=== PATIENT | female | born 1960 | race Caucasian/White ===

== ENCOUNTER 2018-08-16 09:15 | Inpatient (IN) | payer BC, OTHER ==
[~2018-08-16 09:15] MED LIST: CLINDAMYCIN 900 MG in DEXTROSE 5% IN WATER 50 ML IVPB ONE; DEXAMETHASONE SOD PHOSPHATE 10 MG/ML 1 ML VIAL IV ONE; HEPARIN SODIUM,PORCINE 5,000 UNIT/ML 1 ML VIAL SQ ONE; LEVOFLOXACIN 500MG-D5W PMX 500 MG in DEXTROSE/WATER 1 100ML.BAG IVPB ONE; LIDOCAINE 1% 20 ML VIAL (10MG/ML) FOR IV START INTRADERMA PRN; MIDAZOLAM (PF) 2 MG/2 ML VIAL IV PRN; fentaNYL (PF) 50 MCG/ML 2 ML AMP IV PRN
[2018-08-16] MEDS ORDERED: SCOPOLAMINE 1.5MG/72HR PATCH TRANSDERM SCH (09:30)
--- NOTE | 2018-08-16 09:36 | P.GSHP ---
History of Present Illness H&P Date: 08/16/18 CHIEF COMPLAINT: Paraesophageal hiatal hernia with gastroesophageal reflux disease. HISTORY OF PRESENT ILLNESS: The patient is a 57-year-old female who presents with paraesophageal hiatal hernia. She has completed an esophageal manometry including upper endoscopy workup. Now she presents for surgical intervention. PAST MEDICAL HISTORY: Please see list. PAST SURGICAL HISTORY: Please see list. MEDICATIONS: Please see list. ALLERGIES: Please see list. SOCIAL HISTORY: No illicit drug use FAMILY HISTORY: No reports of Crohn disease or ulcerative colitis. REVIEW OF ORGAN SYSTEMS: CONSTITUTIONAL: No reports of fevers or chills. GI: Denies any blood in stools or constipation. PHYSICAL EXAM: VITAL SIGNS: Stable GENERAL: Well-developed pleasant and in no acute distress. HEENT: No scleral icterus. Extraocular movements grossly intact. Moist buccal mucosa. NECK: Supple without lymphadenopathy. CHEST: Unlabored respirations. Equal bilateral excursions. CARDIOVASCULAR: Regular rate and rhythm. Distal 2+ pulses. ABDOMEN: Soft, nondistended. No peritoneal signs. MUSCULOSKELETAL: No clubbing, cyanosis, or edema. SKIN: Well-perfused. Good skin turgor. MANOMETRY: Shows no evidence of achalasia or scleroderma. ASSESSMENT: 1. Diaphragmatic paraesophageal hiatal hernia with severe gastroesophageal reflux disease. PLAN: 1. Recommend proceeding with a robotic paraesophageal hiatal hernia with possible mesh. 2. Benefits and risks of surgical intervention was discussed including possibility of open technique. 3. Inpatient hospitalization recommended of 2 nights 4. DVT prophylaxis. 5. Antibiotic prophylaxis. 6. She has also completed a very low caloric high-protein diet to address underlying hepatomegaly. Past Medical History Past Medical History: Blood Disorder, Cancer, GERD/Reflux, Osteoarthritis (OA), Thyroid Disorder Additional Past Medical History / Comment(s): PERNICIOUS ANEMIA, UTERINE CA 2011, chronic constipation. Hx Bashir's with thyroid nodules and eventual total thyroidectomy. Borderline high cholestrol. History of Any Multi-Drug Resistant Organisms: None Reported Past Surgical History: Cholecystectomy, Hysterectomy, Tubal Ligation Additional Past Surgical History / Comment(s): BONE MARROW BX, thyroidectomy. Past Anesthesia/Blood Transfusion Reactions: Family History of Problems w/ Anesthesia, Motion Sickness, Postoperative Nausea & Vomiting (PONV) Additional Past Anesthesia/Blood Transfusion Reaction / Comment(s): STATES HAS "A LOT OF TROUBLE COMING OUT OF ANESTHESIA" POST OP HAD NURSE SIT NEXT TO HER FOR 5 HOURS, STATED WAS APNEIC. Sisters X2 and Mom had same problems. Past Psychological History: No Psychological Hx Reported Smoking Status: Former smoker Past Alcohol Use History: Rare Additional Past Alcohol Use History / Comment(s): Quit smoking 4 yrs ago, smoked 36 yrs, 1 PPD. Past Drug Use History: None Reported - Past Family History Mother Family Medical History: Cancer Father Family Medical History: Blood Disorder, Cancer Medications and Allergies Home Medications Medication Instructions Recorded Confirmed Type Multivitamins, Pediatric Chew 1 tab PO HS 07/16/14 08/08/18 History [Poly--Steffi Chew (formulary)] Cholecalciferol [Vitamin D3] 1,000 unit PO HS 02/24/15 08/08/18 History Levothyroxine Sodium [Tirosint] 150 mcg PO QAM 02/24/15 08/08/18 History Calcium Carbonate [Calcium] 600 mg PO HS 08/08/18 08/08/18 History Cetirizine HCl [Zyrtec] 10 mg PO DAILY 08/08/18 08/08/18 History Cyclobenzaprine [Flexeril] 5 mg PO TID PRN 08/08/18 08/08/18 History Levothyroxine Sodium [Tirosint] 50 mcg PO QAM 08/08/18 08/08/18 History Allergies Allergy/AdvReac Type Severity Reaction Status Date / Time Penicillins Allergy Anaphylaxis Verified 08/08/18 12:45
[2018-08-16] MEDS ORDERED: DEXAMETHASONE SOD PHOSPHATE 10 MG/ML 1 ML VIAL IV ONE (10:36)
[2018-08-16] MEDS ORDERED: ONDANSETRON 4 MG/2 ML VIAL IVP ONE (10:36)
[2018-08-16] MEDS: LACTATED RINGERS 1,000 ML IV SCH ×2 (10:36→16:14)
[2018-08-16] MEDS ORDERED: NEOSTIGMINE 1 MG/ML 10 ML VIAL ONE (12:14)
[2018-08-16] MEDS ORDERED: ROCURONIUM BROMIDE 10 MG/ML 10 ML VIAL IV ONE (12:14)
[2018-08-16] MEDS ORDERED: HYDROmorphone (PF) 1 MG/ML ONE (12:14)
[2018-08-16] MEDS ORDERED: SUCCINYLCHOLINE CHLORIDE 100 MG/5 ML SYR IV ONE (12:14)
[2018-08-16] MEDS ORDERED: MIDAZOLAM 2 MG/2 ML VIAL ONE (12:14)
[2018-08-16] MEDS ORDERED: PROPOFOL 10 MG/ML 20 ML VIAL IV ONE (12:14)
[2018-08-16] MEDS ORDERED: fentaNYL (PF) 50 MCG/ML 2 ML AMP ONE (12:14)
[2018-08-16] MEDS ORDERED: GLYCOPYRROLATE 0.2 MG/ML 2 ML VIAL ONE (12:14)
[2018-08-16] MEDS ORDERED: ESMOLOL 100 MG/10 ML VIAL ONE (12:14)
[2018-08-16] MEDS ORDERED: LIDOCAINE 1% INJ 10MG/ML (20 ML MDV) ONE (12:14)
[2018-08-16] MEDS ORDERED: BUPIVACAIN-EPI 0.5%-1:200,000 30 ML VIAL SQ ONE (12:41)
[2018-08-16] MEDS ORDERED: LACTATED RINGERS 1,000 ML IV ONE ×3 (12:55→14:56)
[2018-08-16 15:27] VITALS: RESP 16
[2018-08-16] MEDS ORDERED: HYDROcodone/APAP 15 ML SOLUTION PO PRN (15:31)
[2018-08-16] MEDS ORDERED: diphenhydrAMINE 50 MG/ML 1 ML VIAL IVP PRN (15:31)
[2018-08-16] MEDS ORDERED: HYDROmorphone 1 MG/ML 1 ML SYRINGE IVP PRN (15:31)
[2018-08-16] MEDS ORDERED: NALOXONE 0.4 MG/ML 1 ML VIAL IV PRN (15:31)
[2018-08-16] MEDS ORDERED: ACETAMINOPHEN IV (For NPO) 1,000 MG in EMPTY BAG 1 BAG IVPB ONE (15:31)
--- NOTE | 2018-08-16 15:57 | P.OP ---
Date of Procedure: 08/16/18 Description of Procedure: SURGEON: IESHA PEREIRA MD PREOPERATIVE DIAGNOSES: 1. Symptomatic paraesophageal diaphragmatic hiatal hernia. 2. Gastroesophageal reflux disease. 3. Fortune's esophagus 4. History of multinodular goiter 5. Obesity, BMI 33. 6. History of uterine cancer 7. History of parathyroid disorder 8. Family history of esophageal cancer. POSTOPERATIVE DIAGNOSES: 1. Paraesophageal midline diaphragmatic hernia, 6 cm, with incarceration. 2. Gastroesophageal reflux disease. 3. Fortune's esophagus 4. History of multinodular goiter 5. Obesity, BMI 33. 6. History of uterine cancer 7. History of parathyroid disorder 8. Family history of esophageal cancer. 9. Mediastinal tumor, benign, 5 cm 10. Distal esophageal extra mucosal lipoma, 2 cm OPERATION: 1. Robotic-assisted da Holden Xi laparoscopic repair of incarcerated paraesophageal hiatal hernia, 6 x 4 cm, with [place] Biopatch A 8 x 8 cm. 2. Robotic-assisted da Holden Xi laparoscopic resection of benign mediastinal tumor, 5 cm 3. Robotic-assisted da Holden Xi laparoscopic resection of benign esophageal tu mor, 2 cm 4. Intraoperative esophagogastroduodenoscopy ANESTHESIA: General with local anesthetic. ESTIMATED BLOOD LOSS: 10 mL SPECIMENS REMOVED: 1. Mediastinal and distal esophageal mass 5 cm COMPLICATIONS: None. Condition: stable Disposition: floor FINDINGS: 1. Midline incarcerated paraesophageal hiatal hernia 6 x 4 cm 2. Intraoperative upper endoscopy confirms complete closure of hiatal hernia from Hill grade 4 to Hill grade 1 3. Lower midline incisional hernia, 2 cm without incarceration INDICATIONS: The patient is a 57-year-old female who presents with regurgitation, gastroesophageal reflux disease poorly controlled despite medications, and a symptomatic diaphragmatic hiatal hernia with Fortune's esophagus. Preoperative workup including upper endoscopy demonstrated a Hill grade 4 lower esophageal valve. She completed an esophageal manometry. Given the severity of symptoms, she had elected for surgical intervention. Benefits and risks including bleeding, infection, recurrence, dysphagia, injury to the lung, need for further surgery was described at length. Informed consent was obtained. DESCRIPTION: The patient was brought into the operating room and placed in supine position. Preoperatively she had received heparin subcutaneously for DVT prophylaxis. After general induction, the abdomen was prepped and draped in standard sterile fashion. The patient had previously voided prior to coming to the operating room. [place] draping was placed along the abdomen. A timeout protocol was confirmed with the surgical team, for which the patient's name, procedure to be performed including DVT prophylaxis with bilateral SCDs, and preoperative antibiotics were also confirmed. A robotic da Holden Xi system was prepped and primed. At 12 cm from the xiphoid to just below the umbilicus, proposed port sites were marked with indelible marker along the left axillary line, left mid-clavicular line with each ports were marked 10 cm from each other. A 5 mm 0 degrees laparoscopic trocar entry was performed along the left upper quadrant. The abdomen was insufflated to 15 mmHg pressure was tolerated well. Diagnostic laparoscopy demonstrated no injury to bowel, viscera, or mesentery. No injury had occurred to the small bowel or viscera. Next, one 8 mm robotic port was placed along the right upper abdomen. An 8-mm port was were placed along the left lateral abdominal wall. The camera 8-mm port was maintained along the epigastrium via the hernia defect. Another 12 mm port was placed along the left upper abdominal wall after exchanging the 5 mm port. Please note that the ports were placed at least 20 cm away from the target anatomy. Care was taken to check that each robotic arm were safely away from collision with the bed or the patient. At the epigastrium, a medium sized Summer liver retractor was placed under direct visualization with the Iron Loader Unloader placed under the right shoulder of the patient. All robotic arms were used. The patient was repositioned in reverse Trendelenburg position at 16-degrees after lowering the bed. The robot was docked above the right side of the patient. Using a grasper for arm 3, a grasper for arm 1, including vessel sealer for arm 2, the robotic system was docked and primed as described. Instruments were interchanged by the assistant drafter. I had sat at the console. The gastrohepatic ligament was cleaved using a vessel sealer. Next, the phrenoesophageal ligament was mobilized and the distal esophagus was mobilized circumferentially. The left and right crura was identified. Circumferentially, the hernia sac was excised and brought into the peritoneal cavity. Moderate dissection into the mediastinum was performed to release the esophagus into the abdominal cavity. The paraesophageal hiatal hernia sac was also incised and divided from the esophagus. A distal esophageal extramucosal lipoma was also identified and resected 2 cm using a vessel sealer. Care was taken to avoid any gastrotomy. The measured defect was consistent with 6 cm axial length and 4 cm in width. After dissection, the distal esophagus of 3 cm was brought into the abdominal cavity. Once the hiatus and crura was dissected, 2-0 VLOC suture was placed to reapproximate the diaphragmatic hiatus posteriorly. To buttress the repair, a [place] Biopatch A was prepared along the back table and cut in half of a inman-hole fashion as to reinforce the repair as an underlay. The mesh was placed along the crural repair and tagged using horizontal mattress sutures using 2-0 VLOC. Attention was brought to preparation for a Charline fundoplasty as the patient had a weak lower esophageal sphincter on manometry. The proximal third of the stomach was mobilized along the short gastric arteries towards the angle of Hiss. Care was taken to avoid any injury to the spleen. Vessel sealer was used to control for hemostasis. Initial attempt to swing the proximal pole of the stomach posterior anteriorly was proposed however dense tissues were found and also debulked. Despite attempt of fundoplasty, high risk for potential iatrogenic esophageal obstruction was identified hence Charline fundoplasty was abandoned. I went to the head of the bed to perform intraoperative esophagogastroduodenoscopy and placement of a 56Fr bougie. The bougie did not pass easily into the posterior pharynx and also abandoned. An Olympus gastroscope was passed through posterior oropharynx. Retroflexion of the scope confirmed a Hill grade 1 lower esophageal valve. The stomach had been desufflated. No evidence of leaks were found of the esophagus or stomach. The squamocolumnar junction and hiatus was placed at 40 cm from the incisors. The GI tract with desufflated This concluded the endoscopic portion of the case. The robot was undocked from the patient. I re-scrubbed into the case. All instruments and pneumoperitoneum and specimens were evacuated from the abdominal cavity. Incisions were reapproximated using 4-0 Monocryl in an interrupted subcuticular fashion. Liquid glue was applied to the skin. Local anesthetic was infiltrated in all wounds for postop analgesia. Multiple intra-abdominal films were obtained. At the end of the procedure, needle, sponge, and instrument count was verified correct by the surgical elastic knitter. The patient had tolerated the procedure well and was taken to the postanesthesia unit in stable condition. Intraoperative films were reviewed with the patient's family who was pleased with the level of care. Console time 89 minutes.
[2018-08-16 17:06] VITALS: BMI 33.3
[2018-08-16] MEDS: ONDANSETRON 4 MG/2 ML VIAL IVP SCH (17:14)
[2018-08-16] MEDS: KETOROLAC 30 MG/ML 1 ML VIAL IVP SCH (17:15)
[2018-08-16] MEDS: METOCLOPRAMIDE 5 MG/ML 2 ML VIAL IVP SCH (17:15)
[2018-08-16] MEDS: HYOSCYAMINE ORAL DROPS 1.875 MG/15 ML BOTTLE PO SCH (17:18)
[2018-08-16] MEDS: SIMETHICONE 40 MG/0.6 ML DROPS 2,000 MG/30 ML BOTTLE PO SCH (17:20)
[2018-08-16] MEDS: CLINDAMYCIN 900 MG in DEXTROSE 5% IN WATER 50 ML IVPB SCH ×2 (22:03)
[2018-08-17] MEDS: SIMETHICONE 40 MG/0.6 ML DROPS 2,000 MG/30 ML BOTTLE PO SCH ×3 (00:15→11:09)
[2018-08-17] MEDS: ONDANSETRON 4 MG/2 ML VIAL IVP SCH ×3 (00:15→11:08)
[2018-08-17] MEDS: METOCLOPRAMIDE 5 MG/ML 2 ML VIAL IVP SCH ×3 (00:15→11:08)
[2018-08-17] MEDS: KETOROLAC 30 MG/ML 1 ML VIAL IVP SCH ×3 (00:15→11:09)
[2018-08-17] MEDS: HYOSCYAMINE ORAL DROPS 1.875 MG/15 ML BOTTLE PO SCH ×3 (00:15→11:09)
[2018-08-17] MEDS: 0.9% NACL WITH KCL 20 MEQ/L 1,000 ML IV SCH ×2 (00:16→02:16)
[2018-08-17 00:35] VITALS: PULSE 98
[2018-08-17] MEDS: CLINDAMYCIN 900 MG in DEXTROSE 5% IN WATER 50 ML IVPB SCH ×2 (05:33)
[2018-08-17 07:07] VITALS: BP 120/70; TEMP 97.8
[2018-08-17 07:26] LABS: Basophils % (A) 0 %; Eosinophils % (A) 0 %; HCT 40.6 % (34.0-46.0); HGB 12.8 gm/dL (11.4-16.0); Lymphocytes # (A) 1.9 k/uL (1.0-4.8); Lymphocytes % (A) 18 %; MCH 27.9 pg (25.0-35.0); MCHC 31.6 g/dL (31.0-37.0); MCV 88.5 fL (80.0-100.0); Mean Platelet Volume 7.4; Monocytes # (A) 0.6 k/uL (0-1.0); Monocytes % (A) 6 %; Neutrophils # (A) 7.9 k/uL (1.3-7.7); Neutrophils % (A) 75 %; Platelet Count 278 k/uL (150-450); RBC 4.59 m/uL (3.80-5.40); RDW 13.5 % (11.5-15.5); WBC 10.5 k/uL (3.8-10.6)
[2018-08-17 07:39] LABS: Anion Gap 8 mmol/L; Blood Urea Nitrogen 10 mg/dL (7-17); Carbon Dioxide 24 mmol/L (22-30); Chloride 107 mmol/L (98-107); Magnesium 1.7 mg/dL (1.6-2.3); Phosphorus 3.5 mg/dL (2.5-4.5); Potassium 4.5 mmol/L (3.5-5.1); Sodium 139 mmol/L (137-145)
[2018-08-17] MEDS ORDERED: 0.9% NACL WITH KCL 20 MEQ/L 1,000 ML IV SCH (08:00)
--- NOTE | 2018-08-17 08:28 | FL ---
EXAMINATION TYPE: FL esophagus cervic/pharynx DATE OF EXAM: 08/17/2018 HISTORY: post ronel fundoplasty, COMPARISON: NONE TECHNIQUE: A double contrast esophagram is performed utilizing air and barium. FINDINGS: The esophagus shows normal motility and emptying into the stomach. No evidence of obstruction noted. No significant subsegmental changes at the left lung base likely in the basis of postoperative atele ctasis. No extravasation. Fluoroscopy of 25 seconds and 4 images submitted. IMPRESSION: No obstruction or extravasation.
[2018-08-17] MEDS ORDERED: ENOXAPARIN 40 MG/0.4 ML SYRINGE SQ SCH (09:00)
[2018-08-17] MEDS ORDERED: PANTOPRAZOLE 40 MG/10 ML VIAL IV SCH (09:00)
[2018-08-17] MEDS: LACTATED RINGERS 1,000 ML IV SCH (10:50)
--- NOTE | 2018-08-17 12:09 | P.DS ---
Providers Date of admission: 08/16/18 09:56 Expected date of discharge: 08/17/18 Attending physician: Elzbieta Conte Primary care physician: Maria Camarena - Discharge Diagnosis(es) (1) GERD (gastroesophageal reflux disease) Current Visit: Yes Status: Acute (2) Barretts esophagus Current Visit: Yes Status: Acute (3) Benign tumor of mediastinum Current Visit: Yes Status: Acute (4) Lipoma Current Visit: Yes Status: Acute (5) Diaphragmatic hernia Current Visit: Yes Status: Acute (6) Hiatal hernia Current Visit: Yes Status: Acute Hospital Course: 57-year-old female who underwent robotic-assisted liver scheduled for repair of incarcerated paraesophageal hiatal hernia, resection of benign mediastinal tumor and benign esophageal tumor. She is doing well postoperatively without any immediate complications. Esophagram was completed which did not reveal evidence of obstruction or extravasation. Pain is controlled with oral medications. Denies nausea. Tolerating clear liquid diet. Vital signs are stable. She is stable for discharge home today. Please see EMR for further hospital course details. Discharge Diagnosis: 1. Paraesophageal midline diaphragmatic hernia, 6 cm, with incarceration. 2. Gastroesophageal reflux disease. 3. Fortune's esophagus 4. History of multinodular goiter 5. Obesity, BMI 33. 6. History of uterine cancer 7. History of parathyroid disorder 8. Family history of esophageal cancer. 9. Mediastinal tumor, benign, 5 cm 10. Distal esophageal extra mucosal lipoma, 2 cm Nurse practitioner note has been reviewed by physician. Signing provider agrees with the documented findings, assessment, and plan of care. Plan - Discharge Summary Discharge Rx Participant: No New Discharge Prescriptions: New Simethicone 40 mg/0.6 ml Drops [Mylicon Drops] 40 mg PO PCHS #30 ml Ondansetron Odt [Zofran Odt] 4 mg PO Q8HR PRN #9 tab PRN Reason: Nausea Bisacodyl [Dulcolax] 5 mg PO DAILY PRN #10 tablet.dr PRN Reason: Constipation HYDROcodone/APAP [[place] Elixir 7.5-325Mg/15Ml] 30 ml PO Q6HR PRN 3 Days #180 ml PRN Reason: Pain No Action Multivitamins, Pediatric Chew [Poly--Steffi Chew (formulary)] 1 tab PO HS Cholecalciferol [Vitamin D3] 1,000 unit PO HS Calcium Carbonate [Calcium] 600 mg PO HS Cyclobenzaprine [Flexeril] 5 mg PO TID PRN PRN Reason: Muscle Spasm Cetirizine HCl [Zyrtec] 10 mg PO DAILY Levothyroxine Sodium [Tirosint] 150 mcg PO DAILY Discharge Medication List Multivitamins, Pediatric Chew [Poly--Steffi Chew (formulary)] 1 tab PO HS 07/16/14 [History] Cholecalciferol [Vitamin D3] 1,000 unit PO HS 02/24/15 [History] Calcium Carbonate [Calcium] 600 mg PO HS 08/08/18 [History] Cetirizine HCl [Zyrtec] 10 mg PO DAILY 08/08/18 [History] Cyclobenzaprine [Flexeril] 5 mg PO TID PRN 08/08/18 [History] Levothyroxine Sodium [Tirosint] 150 mcg PO DAILY 08/16/18 [History] Bisacodyl [Dulcolax] 5 mg PO DAILY PRN #10 tablet. 08/17/18 [Rx] HYDROcodone/APAP [[place] Elixir 7.5-325Mg/15Ml] 30 ml PO Q6HR PRN 3 Days #180 ml 08/17/18 [Rx] Ondansetron Odt [Zofran Odt] 4 mg PO Q8HR PRN #9 tab 08/17/18 [Rx] Simethicone 40 mg/0.6 ml Drops [Mylicon Drops] 40 mg PO PCHS #30 ml 08/17/18 [Rx] Follow up Appointment(s)/Referral(s): Elzbieta Conte MD [STAFF PHYSICIAN] - 1 Week Activity/Diet/Wound Care/Special Instructions: No driving while taking [place] No lifting over 10 pounds You may shower. No soaking or tub baths Very light activity until you are reevaluated at your follow up appointment with your surgeon
[2018-08-18] MEDS ORDERED: BISACODYL 5 MG TABLET.DR PO PRN (08:00)
== END 2018-08-17 15:40 | disposition home or self-care (01) | DRG 328 ==
LOC: 2ORMAIN 09:56 → 4SSUR 15:42
PROVIDERS: ADMIT Surgery Plastic and Reconstructive Surgery; ATTEND Surgery Plastic and Reconstructive Surgery
PROC: 0DV44ZZ Restriction of Esophagogastric Junction, Percutaneous Endoscopic Approach (ICD-10-PCS; principal; 2018-08-16 11:15)
PROC: 0BUT4JZ Supplement Diaphragm with Synthetic Substitute, Percutaneous Endoscopic Approach (ICD-10-PCS; principal; 2018-08-16 11:15)
PROC: 8E0W4CZ Robotic Assisted Procedure of Trunk Region, Percutaneous Endoscopic Approach (ICD-10-PCS; principal; 2018-08-16 11:15)
PROC: 0DJ08ZZ Inspection of Upper Intestinal Tract, Via Natural or Artificial Opening Endoscopic (ICD-10-PCS; principal; 2018-08-16 11:15)
PROC: 07B74ZX Excision of Thorax Lymphatic, Percutaneous Endoscopic Approach, Diagnostic (ICD-10-PCS; principal; 2018-08-16 11:15)
DX: K44.0 Diaphragmatic hernia with obstruction, without gangrene (principal); R16.0 Hepatomegaly, not elsewhere classified; K21.9 Gastro-esophageal reflux disease without esophagitis; D17.4 Benign lipomatous neoplasm of intrathoracic organs; K43.2 Incisional hernia without obstruction or gangrene; K22.70 Barrett's esophagus without dysplasia; D51.0 Vitamin B12 deficiency anemia due to intrinsic factor deficiency; E89.0 Postprocedural hypothyroidism; K59.09 Other constipation; M19.90 Unspecified osteoarthritis, unspecified site; E66.9 Obesity, unspecified; Z68.33 Body mass index [BMI] 33.0-33.9, adult; Z79.890 Hormone replacement therapy; Z79.899 Other long term (current) drug therapy; Z85.42 Personal history of malignant neoplasm of other parts of uterus; Z87.891 Personal history of nicotine dependence; Z90.710 Acquired absence of both cervix and uterus; Z90.49 Acquired absence of other specified parts of digestive tract; Z98.51 Tubal ligation status; Z88.0 Allergy status to penicillin; Z80.0 Family history of malignant neoplasm of digestive organs
CPT/HCPCS: 74210; 80051; 82310; 82565; 83735; 84100; 84520; 85025; 88304

== ENCOUNTER → 2019-11-08 | Outpatient (CLI) | payer OTHER ==
--- NOTE | 2019-11-08 12:34 | FL ---
EXAMINATION: Cervical and Thoracic Esophagram DATE OF EXAM: 11/08/2019 CLINICAL INDICATION: 58-year-old female unspecified dysphagia, status post hiatal hernia surgery [place] h 2019 with irregular throat, coughing with eating, acid taste, history of Fortune's esophagus. COMPARISON: Total Fluoroscopy Time: 2.25 minutes. Total images: 46 FINDINGS: There are a couple episodes of silent deep penetration with coating of the vocal folds. Otherwise, th e swallowing mechanism is normal and hypopharyngeal anatomy is preserved. The cervical and thoracic portions have a normal course and caliber and normal motility. The mucosa i s normal and no persistent filling defect is encountered. There is a small hiatal hernia. Valsalva maneuver in the supine position results in backfilling of th e hernia and mild gastroesophageal reflux. IMPRESSION: 1. No fixed narrowing or suspicious filling defect. 2. A couple episodes of silent deep penetration with coating of the vocal folds. Recommend speech pat hology consultation for further evaluation. 3. Small hiatal hernia with mild gastroesophageal reflux demonstrated during the exam.
== END | disposition home or self-care (01) ==
LOC: RADUSWWP 10:41
PROVIDERS: ATTEND Surgery Plastic and Reconstructive Surgery
DX: K21.9 Gastro-esophageal reflux disease without esophagitis (principal); K44.9 Diaphragmatic hernia without obstruction or gangrene; Z88.0 Allergy status to penicillin
CPT/HCPCS: 74220

== ENCOUNTER → 2019-11-12 | Outpatient (CLI) | payer OTHER | END | disposition home or self-care (01) | LOC: LABWHC1 08:26 | PROVIDERS: ATTEND Surgery Plastic and Reconstructive Surgery | DX: Z11.59 Encounter for screening for other viral diseases (principal) ==

== ENCOUNTER 2019-11-14 09:33 | Day surgery (SDC) | payer OTHER ==
[2019-11-13 14:29] VITALS: BMI 37.5
--- NOTE | 2019-11-13 19:49 | P.GSHP ---
History of Present Illness H&P Date: 11/14/19 CHIEF COMPLAINT: GERD HISTORY OF PRESENT ILLNESS: The patient is a 58-year-old female who presents reports gastroesophageal reflux disease. Upper endoscopy was offered for further evaluation and management. PAST MEDICAL HISTORY: Please see list. PAST SURGICAL HISTORY: Please see list. MEDICATIONS: Please see list. ALLERGIES: Please see list. SOCIAL HISTORY: No illicit drug use FAMILY HISTORY: No reports of Crohn disease or ulcerative colitis. REVIEW OF ORGAN SYSTEMS: CONSTITUTIONAL: No reports of fevers or chills. GI: Denies any blood in stools or constipation. PHYSICAL EXAM: VITAL SIGNS: Stable GENERAL: Well-developed and pleasant in no acute distress. HEENT: No scleral icterus. Extraocular movements grossly intact. Moist buccal mucosa. NECK: Supple without lymphadenopathy. CHEST: Unlabored respirations. Equal bilateral excursions. CARDIOVASCULAR: Regular rate and rhythm. Distal 2+ pulses. ABDOMEN: Soft, nondistended. MUSCULOSKELETAL: No clubbing, cyanosis, or edema. ASSESSMENT: 1. Gastroesophageal reflux disease PLAN: 1. Recommend proceeding with an upper endoscopy Past Medical History Past Medical History: Blood Disorder, Cancer, GERD/Reflux, Osteoarthritis (OA), Thyroid Disorder Additional Past Medical History / Comment(s): PERNICIOUS ANEMIA, UTERINE CA 2011, chronic constipation. Hx Bashir's with thyroid nodules and eventual total thyroidectomy. Borderline high cholestrol. History of Any Multi-Drug Resistant Organisms: None Reported Past Surgical History: Cholecystectomy, Hysterectomy, Tubal Ligation Additional Past Surgical History / Comment(s): BONE MARROW BX, thyroidectomy. Hiatal hernia sx 08/2018 Past Anesthesia/Blood Transfusion Reactions: Family History of Problems w/ Anesthesia, Motion Sickness Additional Past Anesthesia/Blood Transfusion Reaction / Comment(s): STATES HAS "A LOT OF TROUBLE COMING OUT OF ANESTHESIA" POST OP HAD NURSE SIT NEXT TO HER FOR 5 HOURS, STATED WAS APNEIC. Sisters X2 and Mom had same problems. Smoking Status: Former smoker - Past Family History Mother Family Medical History: Cancer Father Family Medical History: Blood Disorder, Cancer Medications and Allergies Home Medications Medication Instructions Recorded Confirmed Type Multivitamins, Pediatric Chew 1 tab PO HS 07/16/14 11/13/19 History [Poly--Steffi Chew (formulary)] Cholecalciferol [Vitamin D3] 1,000 unit PO HS 02/24/15 11/13/19 History Calcium Carbonate [Calcium] 600 mg PO HS 08/08/18 11/13/19 History Cyclobenzaprine [Flexeril] 5 mg PO TID PRN 08/08/18 11/13/19 History Levothyroxine Sodium [Tirosint] 150 mcg PO DAILY 08/16/18 11/13/19 History Allergies Allergy/AdvReac Type Severity Reaction Status Date / Time cephalexin [From Keflex] Allergy Anaphylaxis Verified 11/13/19 14:32 Penicillins Allergy Anaphylaxis Verified 11/13/19 14:32
[~2019-11-14 09:33] MED LIST changes: -CLINDAMYCIN 900 MG in DEXTROSE 5% IN WATER 50 ML IVPB ONE; -DEXAMETHASONE SOD PHOSPHATE 10 MG/ML 1 ML VIAL IV ONE; -HEPARIN SODIUM,PORCINE 5,000 UNIT/ML 1 ML VIAL SQ ONE; +LACTATED RINGERS 1,000 ML IV SCH; -LEVOFLOXACIN 500MG-D5W PMX 500 MG in DEXTROSE/WATER 1 100ML.BAG IVPB ONE; -LIDOCAINE 1% 20 ML VIAL (10MG/ML) FOR IV START INTRADERMA PRN; -MIDAZOLAM (PF) 2 MG/2 ML VIAL IV PRN; -fentaNYL (PF) 50 MCG/ML 2 ML AMP IV PRN
[2019-11-14 10:37] VITALS: RESP 16; TEMP 97.7
[2019-11-14] MEDS ORDERED: LIDOCAINE 1% INJ 10MG/ML (20 ML MDV) ONE (11:01)
[2019-11-14] MEDS ORDERED: PROPOFOL 10 MG/ML 20 ML VIAL IV ONE (11:01)
--- NOTE | 2019-11-14 11:17 | P.HPADDEND ---
H&P Addendum H&P Addendum Date: 11/14/19 Patient presents with gastroesophageal reflux disease, recurrent. Also she has history of Fortune's. Will proceed with upper endoscopy with biopsies.
--- NOTE | 2019-11-14 11:20 | P.PCN ---
Date of Procedure: 11/14/19 Description of Procedure: PREOPERATIVE DIAGNOSIS: Gastroesophageal reflux disease. Morbid obesity. History of Fortune's esophagus POSTOPERATIVE DIAGNOSIS: Morbid obesity. Gastritis. Gastroesophageal reflux disease. Gastric polyp History of Fortune's esophagus OPERATION: Esophagogastroduodenoscopy with snare polypectomy for gastric polyp and GE junction polyp Esophagogastroduodenoscopy with biopsies along the distal esophagus SURGEON: Elzbieta Conte MD ANESTHESIA: MAC. INDICATIONS: The patient is a 58-year-old female who presents with a history of reflux disease and Fortune's esophagus. Benefits and risks of the procedure were described. Informed consent was obtained. DESCRIPTION: The patient was brought into the endoscopy suite and laid in the left lateral decubitus position. An Olympus gastroscope was passed along the posterior oropharynx down to the distal esophagus where the squamocolumnar junction was encountered at 40 cm from the incisors. The stomach was entered and no bile reflux was found. Additional findings are listed below. Biopsies with cold forceps were obtained of the antrum. Additionally, gastric polyp is in a following the antrum and GE junction. The first through third portion of the duodenum was examined and unremarkable. Retroflexion of the scope confirmed Hill grade 2 lower esophageal valve. The squamocolumnar junction demonstrated LA grade A erosive esophagitis. The stomach was desufflated. The patient tolerated the procedure well. FINDINGS: Squamocolumnar junction 37 cm from the incisors. Diaphragmatic hiatus at 37 cm. Hill grade 2 lower esophageal valve. LA grade A erosive esophagitis. No active duodenitis. Chronic gastritis 8 mm gastric polyp along antrum resected with snare polypectomy 4 mm gastric polyp along gastroesophageal junction resected with snare polypectomy The biopsy forceps of distal esophagus for Fortune's obtained RECOMMENDATIONS: Repeat upper endoscopy in one year. Plan - Discharge Summary New Discharge Prescriptions: New Omeprazole [PriLOSEC] 40 mg PO DAILY #90 cap Continue Multivitamins, Pediatric Chew [Poly--Steffi Chew (formulary)] 1 tab PO HS Cholecalciferol [Vitamin D3 (25 Mcg = 1000 Iu)] 1,000 unit PO HS Calcium Carbonate [Calcium] 600 mg PO HS Cyclobenzaprine [Flexeril] 5 mg PO TID PRN PRN Reason: Muscle Spasm Levothyroxine Sodium [Tirosint] 150 mcg PO DAILY Discharge Medication List Multivitamins, Pediatric Chew [Poly--Steffi Chew (formulary)] 1 tab PO HS 07/16/14 [History] Cholecalciferol [Vitamin D3 (25 Mcg = 1000 Iu)] 1,000 unit PO HS 02/24/15 [History] Calcium Carbonate [Calcium] 600 mg PO HS 08/08/18 [History] Cyclobenzaprine [Flexeril] 5 mg PO TID PRN 08/08/18 [History] Levothyroxine Sodium [Tirosint] 150 mcg PO DAILY 08/16/18 [History] Omeprazole [PriLOSEC] 40 mg PO DAILY #90 cap 11/14/19 [Rx] Follow up [facility]ment(s[facility]Ref[facility] [place] [place] [facility] - [place] Patient Instructions/Handouts: Gastric Polyps (DC) Activity/Diet/Wound Care/Special Instructions: Diet as tolerated. Avoid NSAIDs, ibuprofen, Motrin, Aleve for 3 days. Discharge Disposition: HOME SELF-CARE
[2019-11-14 11:41] VITALS: BP 139/77; PULSE 83
== END 2019-11-14 12:05 | disposition home or self-care (01) ==
LOC: ORWHC2ENDO 09:33
PROVIDERS: ATTEND Surgery Plastic and Reconstructive Surgery
DX: K21.0 Gastro-esophageal reflux disease with esophagitis (principal); K29.50 Unspecified chronic gastritis without bleeding; K31.7 Polyp of stomach and duodenum; K22.8 Other specified diseases of esophagus; K22.70 Barrett's esophagus without dysplasia; D51.0 Vitamin B12 deficiency anemia due to intrinsic factor deficiency; M19.90 Unspecified osteoarthritis, unspecified site; K59.09 Other constipation; E89.0 Postprocedural hypothyroidism; E78.00 Pure hypercholesterolemia, unspecified; E66.01 Morbid (severe) obesity due to excess calories; Z68.37 Body mass index [BMI] 37.0-37.9, adult; Z88.1 Allergy status to other antibiotic agents; Z88.0 Allergy status to penicillin; Z86.39 Personal history of other endocrine, nutritional and metabolic disease; Z90.49 Acquired absence of other specified parts of digestive tract; Z90.710 Acquired absence of both cervix and uterus; Z98.51 Tubal ligation status; Z98.890 Other specified postprocedural states; Z91.89 Other specified personal risk factors, not elsewhere classified; Z87.891 Personal history of nicotine dependence; Z79.899 Other long term (current) drug therapy; Z79.890 Hormone replacement therapy; Z97.2 Presence of dental prosthetic device (complete) (partial); Z87.898 Personal history of other specified conditions; Z80.49 Family history of malignant neoplasm of other genital organs; Z84.89 Family history of other specified conditions; Z80.9 Family history of malignant neoplasm, unspecified; Z83.2 Family history of diseases of the blood and blood-forming organs and certain disorders involving the immune mechanism
CPT/HCPCS: 88305; 88342; 43239; 43251; J2001; J2704

== ENCOUNTER → 2019-11-20 | Outpatient (CLI) | payer OTHER ==
[2019-11-20 16:05] VITALS: BP 140/93; PULSE 92; RESP 16; TEMP 98.1; BMI 37.3
--- NOTE | 2019-11-20 16:21 | P.PN ---
Subjective Progress Note Date: 11/20/19 Bariatric H&P - History & Physicial H&P Date: 11/20/19 History & Physicial: Visit/CC: Follow-up after hernia surgery Patient initial contact: Initial weight: 101.605 kg Initial weight in pounds: 224.00 Height: 5 ft 5 in Initial BMI: 37.3 Last weight: Current weight: 101.605 kg Current weight in pounds: 224.00 Current BMI: 37.3 [place] body weight (based on NIH guidelines): 56.699 kg Excess body weight loss: 0.0% The patient is a 59 year-old F who presents for Bariatric Assessment. DATE OF SERVICE: 11/20/2019 REASON FOR CONSULTATION: Initial bariatric evaluation HISTORY OF PRESENT ILLNESS: Tran Rivero is a 59-year-old female who comes with lifelong morbid obesity. She comes in with blood sugar glucose intolerance, hypertension, troubles with weight. She has intolerance to Omeprazole for her severe gastroesophageal reflux disease. She has osteoarthritis. 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 She comes in for the gastric bypass. She has tried weight loss with caloric restriction often with weight regain. At height of 5 feet 5 inches, her ideal body weight is 149 pounds. She comes in 224 pounds. Her body mass index is 37.3. She is 75 pounds overweight. PAST MEDICAL HISTORY: 1. Morbid obesity due to excess calories 2. Body mass index of 37.3, initial 3. Gastroesophageal reflux disease 4. Hypothyroidism 5. Pernicious anemia 6. History of uterine cancer 7. Bashir's thyroiditis 8. Hypercholesterolemia 9. Chronic constipation 10. Postoperative nausea vomiting 11. Hypertension PAST SURGICAL HISTORY: 1. Hysterectomy 2. Esophagogastroduodenoscopy 3. Cholecystectomy 4. Tubal ligation 5. Thyroidectomy HOME MEDICATIONS: Home Medications Medication Instructions Recorded Confirmed Multivitamins, Pediatric Chew 1 tab PO HS 07/16/14 11/14/19 [Poly--Steffi Chew (formulary)] Cholecalciferol [Vitamin D3 (25 1,000 unit PO HS 02/24/15 11/14/19 Mcg = 1000 Iu)] Calcium Carbonate [Calcium] 600 mg PO HS 08/08/18 11/14/19 Cyclobenzaprine [Flexeril] 5 mg PO TID PRN 08/08/18 11/14/19 Levothyroxine Sodium [Tirosint] 150 mcg PO DAILY 08/16/18 11/14/19 Previous Rx's Medication Instructions Recorded Omeprazole [PriLOSEC] 40 mg PO DAILY #90 cap 11/14/19 ALLERGIES: Allergies Allergy/AdvReac Type Severity Reaction Status Date / Time cephalexin [From Keflex] Allergy Anaphylaxis Verified 11/14/19 10:30 Penicillins Allergy Anaphylaxis Verified 11/14/19 10:30 SOCIAL HISTORY: Past tobacco use. FAMILY HISTORY: No family history of ulcerative colitis disease or Crohn's disease. Family history of morbid obesity. No lupus in the family. No reports of stomach or esophageal cancer. REVIEW OF ORGAN SYSTEMS: CONSTITUTIONAL: At height of 5 feet 5 inches, her ideal body weight is 149 pounds. She comes in 224 pounds. Her body mass index is 37.3. She is 75 pounds overweight. HEENT: Denies any active troubles with vision or hearing. ENDOCRINE: Past glucose intolerance. Has hypothyroidism. CARDIOVASCULAR: No past reports of palpitations or heart attacks or chest pain. RESPIRATORY: Has daytime somnolence. No asthma. GASTROINTESTINAL: Denies any bright red blood per rectum. No diarrhea. Has constipation. GENITOURINARY: No blood in urine. Has hysterectomy MUSCULOSKELETAL: Has lower back pain and joint pain. Has osteoarthritis of the knees and hips NEURO: No headaches. No seizure disorders. PSYCH: No depression. No suicidal ideation. RHEUMATOLOGIC: No lupus. No rheumatoid arthritis. HEMATOLOGIC: Denies any abnormal bleeding or bruising. No personal history of DVTs. SKIN: No rash. No skin cancer. PHYSICAL EXAM: VITAL SIGNS: Height 5 foot 5 inches, weight 224 pounds. BMI 37.3 Vital Signs Temp 98.1 F 11/20/19 16:00 Pulse 92 11/20/19 16:00 Resp 16 11/20/19 16:00 BP 140/93 11/20/19 16:00 Pulse Ox GENERAL: Well-developed in no acute distress. HEENT: No scleral icterus. Extraocular movements grossly intact. Hears conversational speech. No nasal drainage. NECK: Supple without lymphadenopathy. CHEST: Nonlabored respirations with equal bilateral excursions. CARDIOVASCULAR: Regular rate and regular rhythm. Distal 2+ pulses. ABDOMEN: Obese, soft, nontender, nondistended. MUSCULOSKELETAL: No clubbing, cyanosis. NEURO: No focal or lateralizing signs. Cranial nerves 2 through 12 grossly wi thin normal limits. PSYCH: Appropriate affect. Alert and oriented to person, place and time. SKIN: Good skin turgor. Well perfused. MEDICAL REPORT: EGD FINDINGS: Squamocolumnar junction 37 cm from the incisors. Diaphragmatic hiatus at 37 cm. Hill grade 2 lower esophageal valve. LA grade A erosive esophagitis. No active duodenitis. Chronic gastritis 8 mm gastric polyp along antrum resected with snare polypectomy 4 mm gastric polyp along gastroesophageal junction resected with snare polypectomy The biopsy forceps of distal esophagus for Fortune's obtained Final Pathologic Diagnosis A. STOMACH, BIOPSY: Hyperplastic polyp with background chronic active gastritis. Helicobacter pylori immunoperoxidase stain is negative for H. pylori organisms (controls appropriate). B. GASTROESOPHAGEAL JUNCTION, BIOPSY: Hyperplastic polyp with background chronic active inflammation. Negative for intestinal metaplasia. C. ESOPHAGUS, BIOPSY: Chronic esophagitis. Intramucosal eosinophils are not identified. ASSESSMENT: 1. Morbid obesity due to excess calories 2. Body mass index of 37.3, initial 3. Gastroesophageal reflux disease 4. Hypothyroidism 5. Pernicious anemia 6. History of uterine cancer 7. Bashir's thyroiditis 8. Hypercholesterolemia 9. Chronic constipation 10. Postoperative nausea vomiting 11. Hypertension PLAN: 1. Surgical options including a band, gastric bypass, sleeve gastrectomy were described in detail. Alternatives such as gastric balloon including duodenal switch were described. She is looking into the gastric bypass. 2. The [place] [facility] collaborative data and outcomes calculator were described with surgical options. 3. Recommend a bariatric metabolic panel to evaluate for micro- including macronutrient deficiencies. 4. For history of daytime somnolence, recommend evaluation and treatment for sleep apnea. 5. Dietary surveillance and counseling was reviewed. Increased protein intake over 65 grams daily advised. 6. Will need cardiac risk assessment. 7. Recommend medical risk assessment. 8. Psych assessment per insurance guidelines. 9. Recommend 12-lead EKG. 10. Recommend bariatric seminar. Thank you for this consultation. Past Medical History Past Medical History: Blood Disorder, Cancer, GERD/Reflux, Osteoarthritis (OA), Thyroid Disorder Additional Past Medical History / Comment(s): PERNICIOUS ANEMIA, UTERINE CA 2011, chronic constipation. Hx Bashir's with thyroid nodules and eventual total thyroidectomy. Borderline high cholestrol. History of Any Multi-Drug Resistant Organisms: None Reported Past Surgical History: Cholecystectomy, Hysterectomy, Tubal Ligation Additional Past Surgical History / Comment(s): BONE MARROW BX, thyroidectomy. Past Anesthesia/Blood Transfusion Reactions: Family History of Problems w/ Anesthesia, Motion Sickness, Postoperative Nausea & Vomiting (PONV) Additional Past Anesthesia/Blood Transfusion Reaction / Comm: STATES HAS "A LOT OF TROUBLE COMING OUT OF ANESTHESIA" POST OP HAD NURSE SIT NEXT TO HER FOR 5 HOURS, STATED WAS APNEIC. Sisters X2 and Mom had same problems. Past Psychological History: No Psychological Hx Reported Additional Psychological History / Comment(s): R/T ANESTHESIA Smoking Status: Former smoker Past Alcohol Use History: Rare Additional Past Alcohol Use History / Comment(s): Quit smoking 4 yrs ago, smoked 36 yrs, 1 PPD. Past Drug Use History: None Reported - Past Family History Mother Family Medical History: Cancer Father Family Medical History: Blood Disorder, Cancer Surgical - Exam Vital Signs Temp Pulse Resp BP 98.1 F 92 16 140/93 11/20/19 16:00 11/20/19 16:00 11/20/19 16:00 11/20/19 16:00 Bariatric Checklist Checklist: Plan: Checklist: EGD: 1. Hiatal hernia: 2. H. Pylori: HgbA1c: Vitamin D: Smoking: Former smoker Primary care physician referral: Psychiatry clearance: Cardiology clearance: Sleep study: Diet journal: VTE risk score: VTE risk level: Rehab needs at discharge: Objective - Vital Signs Vital signs: Vital Signs Temp 98.1 F 11/20/19 16:00 Pulse 92 11/20/19 16:00 Resp 16 11/20/19 16:00 BP 140/93 11/20/19 16:00 Pulse Ox Intake & Output 11/19/19 11/20/19 11/20/19 18:59 06:59 18:59 Weight 101.605 kg
== END | disposition home or self-care (01) ==
LOC: BARWHC3 15:41
PROVIDERS: ATTEND Surgery Plastic and Reconstructive Surgery
DX: E66.01 Morbid (severe) obesity due to excess calories (principal); K21.9 Gastro-esophageal reflux disease without esophagitis; E03.9 Hypothyroidism, unspecified; D51.0 Vitamin B12 deficiency anemia due to intrinsic factor deficiency; E06.3 Autoimmune thyroiditis; I10 Essential (primary) hypertension; K59.09 Other constipation; E78.00 Pure hypercholesterolemia, unspecified; Z68.37 Body mass index [BMI] 37.0-37.9, adult; Z85.42 Personal history of malignant neoplasm of other parts of uterus; Z90.49 Acquired absence of other specified parts of digestive tract; Z90.710 Acquired absence of both cervix and uterus; Z79.891 Long term (current) use of opiate analgesic; Z79.899 Other long term (current) drug therapy; Z88.0 Allergy status to penicillin; Z88.1 Allergy status to other antibiotic agents
CPT/HCPCS: 99211

== ENCOUNTER → 2019-12-10 | Outpatient (CLI) | payer OTHER ==
[2019-12-10 09:39] LABS: HCT 43.8 % (34.0-46.0); HGB 13.8 gm/dL (11.4-16.0); MCHC 31.5 g/dL (31.0-37.0); MCV 85.7 fL (80.0-100.0); Mean Platelet Volume 7.7; Platelet Count 279 k/uL (150-450); RBC 5.11 m/uL (3.80-5.40); RDW 13.3 % (11.5-15.5); WBC 6.6 k/uL (3.8-10.6)
[2019-12-10 16:49] LABS: % Iron Saturation 25.52 (12.00-45.00); African American GFR (CKD) 71.9 (60.0-200.0); Albumin/Globulin Ratio 1.54 (1.60-3.17); Anion Gap 5.4 mmol/L (4.00-12.00); Calcium 9.4 mg/dL (8.7-10.3); Carbon Dioxide 28.6 mmol/L (21.6-31.8); Chol/HDL Ratio 4.48; Globulin 2.6 g/dL (1.6-3.3); LDL Cholesterol,Calculated 112.8 mg/dL (0.0-131.0); Magnesium 1.8 mg/dL (1.5-2.4); Non-African American GFR(CKD) 62.1 (60.0-200.0); Phosphorus 3.6 mg/dL (2.4-5.1); Potassium 4.6 mmol/L (3.5-5.5); Total Bilirubin 0.3 mg/dL (0.3-1.2); Total Protein 6.6 g/dL (6.2-8.2); VLDL Calculation 33.2 mg/dL (5.00-40.00)
[2019-12-10 16:56] LABS: Ferritin 54.7 ng/mL (10.0-291.0)
[2019-12-10 17:01] LABS: Folate, Serum 8.2 ng/mL
[2019-12-10 17:27] LABS: INR 0.96 (0.90-1.11); Partial Thromboplastin Time 28.6 sec (24.7-29.9); Prothrombin Time 10.3 sec (9.9-11.9)
[2019-12-11 14:27] LABS: Zinc, Serum 64 ug/dL (60-130)
[2019-12-12 07:28] LABS: Vitamin A 51 ug/dL (38-106)
[2019-12-12 08:42] LABS: Vit B1(Thiamine) 62 ug/L (38-122)
== END | disposition home or self-care (01) ==
LOC: LABWHC1 08:15
PROVIDERS: ATTEND Surgery Plastic and Reconstructive Surgery
DX: E21.1 Secondary hyperparathyroidism, not elsewhere classified (principal); E89.1 Postprocedural hypoinsulinemia; D50.9 Iron deficiency anemia, unspecified; K90.9 Intestinal malabsorption, unspecified; E55.9 Vitamin D deficiency, unspecified; K74.1 Hepatic sclerosis; N19 Unspecified kidney failure; K50.90 Crohn's disease, unspecified, without complications
CPT/HCPCS: 36415; 80053; 80061; 82306; 82525; 82607; 82728; 82746; 83036; 83540; 83550; 83735; 83970; 84100; 84134; 84255; 84425; 84443; 84590; 84630; 85027; 85610; 85730; 93005

== ENCOUNTER → 2020-09-07 | Outpatient (CLI) | payer OTHER ==
[2020-09-07 12:12] VITALS: BMI 36.7
== END ==
LOC: BARWHC3 08:17
PROVIDERS: ATTEND Surgery Plastic and Reconstructive Surgery
DX: E66.01 Morbid (severe) obesity due to excess calories (principal); Z71.3 Dietary counseling and surveillance; Z68.36 Body mass index [BMI] 36.0-36.9, adult; Z87.891 Personal history of nicotine dependence
CPT/HCPCS: 97804

== ENCOUNTER → 2020-09-23 | Outpatient (CLI) | payer OTHER ==
[2020-09-23 16:55] VITALS: BP 139/84; PULSE 106; RESP 16; TEMP 97.7; BMI 37.0
--- NOTE | 2020-09-23 17:29 | P.PN ---
Subjective Progress Note Date: 09/23/20 DATE OF SERVICE: 09/23/2020 CHIEF COMPLAINT: Morbid obesity HISTORY OF PRESENT ILLNESS: Tran Rivero is a 59-year-old female who comes with lifelong morbid obesity. As a result of her morbid obesity, she has developed obstructive sleep apnea including hypertensive heart disease. She comes in with worsening gastroesophageal reflux disease. As a result of her comorbidities including uncontrolled gastroesophageal reflux disease, she is looking into the gastric bypass. She has completed her medical supervised weight loss. She has completed psychological risks assessment. She has completed medical and cardiac risks assessment. She has worsening symptoms in the past 9 months. She presents for surgical options. At height of 5 feet 5 inches, her ideal body weight is 149 pounds. Her highest weight is 226 pounds, BMI 37.7. She comes in 222 pounds from 226 pounds, 9 months ago. She has lost 3 pounds in 9 months. Her body mass index is 37.1. She is 74 pounds overweight. PAST MEDICAL HISTORY: 1. Morbid obesity due to excess calories 2. Body mass index of 37.7 3. Gastroesophageal reflux disease 4. Hypothyroidism 5. Pernicious anemia 6. History of uterine cancer 7. Bashir's thyroiditis 8. Hypercholesterolemia 9. Chronic constipation 10. Postoperative nausea vomiting 11. Hypertension PAST SURGICAL HISTORY: 1. Hysterectomy 2. Esophagogastroduodenoscopy 3. Cholecystectomy 4. Tubal ligation 5. Thyroidectomy HOME MEDICATIONS: Home Medications Medication Instructions Recorded Confirmed Multivitamins, Pediatric Chew 1 tab PO HS 07/16/14 09/07/20 [Poly--Steffi Chew (formulary)] Cholecalciferol [Vitamin D3 (25 8,000 unit PO HS 02/24/15 09/07/20 Mcg = 1000 Iu)] Calcium Carbonate [Calcium] 600 mg PO HS 08/08/18 09/07/20 Cyclobenzaprine [Flexeril] 10 mg PO TID PRN 08/08/18 09/07/20 Levothyroxine Sodium [Tirosint] 250 mcg PO DAILY 08/16/18 09/07/20 Previous Rx's Medication Instructions Recorded Famotidine [Pepcid] 20 mg PO BID #20 tablet 01/01/20 ALLERGIES: Allergies Allergy/AdvReac Type Severity Reaction Status Date / Time cephalexin [From Keflex] Allergy Anaphylaxis Verified 09/07/20 10:30 Penicillins Allergy Anaphylaxis Verified 09/07/20 10:30 omeprazole AdvReac Chest Pain Verified 09/07/20 10:30 SOCIAL HISTORY: Past tobacco use. FAMILY HISTORY: No family history of ulcerative colitis disease or Crohn's disease. Family history of morbid obesity. No lupus in the family. No reports of stomach or esophageal cancer. REVIEW OF ORGAN SYSTEMS: CONSTITUTIONAL: At height of 5 feet 5 inches, her ideal body weight is 149 pounds. Her highest weight is 226 pounds, BMI 37.7. She is 77 pounds overweight. HEENT: Denies any active troubles with vision or hearing. ENDOCRINE: Past glucose intolerance. Has hypothyroidism. CARDIOVASCULAR: No past reports of palpitations or heart attacks or chest pain. RESPIRATORY: Has daytime somnolence. No asthma. GASTROINTESTINAL: Denies any bright red blood per rectum. No diarrhea. Has constipation. GENITOURINARY: No blood in urine. Has hysterectomy MUSCULOSKELETAL: Has lower back pain and joint pain. Has osteoarthritis of the knees and hips NEURO: No headaches. No seizure disorders. PSYCH: No depression. No suicidal ideation. RHEUMATOLOGIC: No lupus. No rheumatoid arthritis. HEMATOLOGIC: Denies any abnormal bleeding or bruising. No personal history of DVTs. SKIN: No rash. No skin cancer. PHYSICAL EXAM: VITAL SIGNS: Height 5 foot 5 inches, weight 222 pounds. BMI 37.1 Vital Signs Temp 97.7 F 09/23/20 16:52 Pulse 106 H 09/23/20 16:52 Resp 16 09/23/20 16:52 BP 139/84 09/23/20 16:52 Pulse Ox GENERAL: Well-developed in no acute distress. HEENT: No scleral icterus. Extraocular movements grossly intact. Hears conversational speech. No nasal drainage. NECK: Supple without lymphadenopathy. CHEST: Nonlabored respirations with equal bilateral excursions. CARDIOVASCULAR: Tachycardic. Distal 2+ pulses. ABDOMEN: Obese, soft, nontender, nondistended. MUSCULOSKELETAL: No clubbing, cyanosis. NEURO: No focal or lateralizing signs. Cranial nerves 2 through 12 grossly within normal limits. PSYCH: Appropriate affect. Alert and oriented to person, place and time. SKIN: Good skin turgor. Well perfused. ASSESSMENT: 1. Morbid obesity due to excess calories 2. Body mass index of 37.7 to 37.1 3. Gastroesophageal reflux disease 4. Hypothyroidism 5. Pernicious anemia 6. History of uterine cancer 7. Bashir's thyroiditis 8. Hypercholesterolemia 9. Chronic constipation 10. Postoperative nausea vomiting 11. Hypertension 12. Vitamin D deficiency 13. Secondary hyperparathyroidism 14. COVID vaccinated PLAN: 1. Bariatric options between a sleeve, band and a Raciel-en-Y gastric bypass were reviewed in detail. The patient elected for a gastric bypass. Robotic assisted approach described. 2. The [place] [facility] Data was also reviewed with benefits and risks as described. 3. An 8 page second-generation bariatric consent form was reviewed in detail including potential of bleeding, infection, leaks, adequate weight loss, nutritional deficiencies which the patient demonstrated understanding of the risks. 4. A 2 week high-protein low caloric 800 kcal diet described to address hepatomegaly. 5. Preoperative labs including complete metabolic panel and CBC with type and screen recommended. 6. DVT prophylaxis per [place] [facility]. 7. Antibiotic prophylaxis. 8. Inpatient hospitalization anticipated for more than 2 nights. 9. All questions and concerns were addressed with the patient. 10. She is at elevated risk for perioperative complications from prior gastric surgery. 11. Overall, patient has expressed understanding of bariatric care including postoperative diet and commitment of lifestyle. Patient should benefit from surgical intervention for correction of her morbid obesity. 12. She has COVID vaccination done. 13. MBSAQIP reviewed with risks and benefits in detail including anticipated weight loss and handed to her. Objective - Vital Signs Vital signs: Vital Signs Temp 97.7 F 09/23/20 16:52 Pulse 106 H 09/23/20 16:52 Resp 16 09/23/20 16:52 BP 139/84 09/23/20 16:52 Pulse Ox Intake & Output 09/22/20 09/23/20 09/23/20 18:59 06:59 18:59 Weight 101.151 kg
== END | disposition home or self-care (01) ==
LOC: BARWHC3 16:16
PROVIDERS: ATTEND Surgery Plastic and Reconstructive Surgery
DX: E66.01 Morbid (severe) obesity due to excess calories (principal); K21.9 Gastro-esophageal reflux disease without esophagitis; E03.9 Hypothyroidism, unspecified; E78.00 Pure hypercholesterolemia, unspecified; D51.0 Vitamin B12 deficiency anemia due to intrinsic factor deficiency; E06.3 Autoimmune thyroiditis; K59.09 Other constipation; N25.81 Secondary hyperparathyroidism of renal origin; E55.9 Vitamin D deficiency, unspecified; I10 Essential (primary) hypertension; Z68.37 Body mass index [BMI] 37.0-37.9, adult; R11.2 Nausea with vomiting, unspecified; Z85.42 Personal history of malignant neoplasm of other parts of uterus; Z88.0 Allergy status to penicillin; Z88.1 Allergy status to other antibiotic agents; Z87.891 Personal history of nicotine dependence; Z79.899 Other long term (current) drug therapy
CPT/HCPCS: 99211

== ENCOUNTER → 2020-11-13 | Outpatient (CLI) | payer OTHER ==
[2020-11-13 10:15] LABS: Basophils % (A) 1 %; Eosinophils # (A) 0.1 k/uL (0-0.7); Eosinophils % (A) 2 %; HCT 43.2 % (34.0-46.0); Lymphocytes # (A) 1.8 k/uL (1.0-4.8); Lymphocytes % (A) 31 %; MCH 26.9 pg (25.0-35.0); MCHC 32.5 g/dL (31.0-37.0); MCV 82.7 fL (80.0-100.0); Mean Platelet Volume 7.4; Monocytes # (A) 0.4 k/uL (0-1.0); Monocytes % (A) 6 %; Neutrophils # (A) 3.4 k/uL (1.3-7.7); Neutrophils % (A) 59 %; Platelet Count 305 k/uL (150-450); RBC 5.22 m/uL (3.80-5.40); RDW 13.3 % (11.5-15.5); WBC 5.9 k/uL (3.8-10.6)
[2020-11-13 10:21] LABS: Albumin 4.3 g/dL (3.5-5.0); Calcium 9.8 mg/dL (8.4-10.2); Potassium 4.9 mmol/L (3.5-5.1); Total Bilirubin 0.4 mg/dL (0.2-1.3); Total Protein 7.2 g/dL (6.3-8.2)
== END | disposition home or self-care (01) ==
LOC: LABPAT 09:08
PROVIDERS: ATTEND Surgery Plastic and Reconstructive Surgery
DX: Z01.812 Encounter for preprocedural laboratory examination (principal)
CPT/HCPCS: 36415; 80053; 85025

== ENCOUNTER → 2020-11-18 | Outpatient (CLI) | payer OTHER ==
[2020-11-18 17:44] VITALS: BP 115/74; PULSE 98; RESP 18; TEMP 97.3; BMI 36.1
--- NOTE | 2020-11-18 18:19 | P.PN ---
Subjective Progress Note Date: 11/18/20 DATE OF SERVICE: 11/18/2020 CHIEF COMPLAINT: Morbid obesity HISTORY OF PRESENT ILLNESS: Tran Rivero is a 59-year-old female who comes in with complications from her morbid obesity including obstructive sleep apnea and hypertensive heart disease. She has severe gastroesophageal reflux disease unrelieved by medications and prior surgery. She is on Pepcid. She is now diabetic. She is looking into the gastric bypass to address her morbid obesity including severe gastroesophageal reflux disease. At height of 5 feet 5 inches, her ideal body weight is 149 pounds. Her highest weight is 226 pounds, BMI 37.7. She comes in 208 pound from 222 pounds, 2 months ago. She has lost 15 pounds in 2 months. Her body mass index is 36.1. She is 59 pounds overweight. PAST MEDICAL HISTORY: 1. Morbid obesity due to excess calories 2. Body mass index of 37.7 3. Gastroesophageal reflux disease 4. Hypothyroidism 5. Pernicious anemia 6. History of uterine cancer 7. Bashir's thyroiditis 8. Hypercholesterolemia 9. Chronic constipation 10. Postoperative nausea vomiting 11. Hypertension PAST SURGICAL HISTORY: 1. Hysterectomy 2. Esophagogastroduodenoscopy 3. Cholecystectomy 4. Tubal ligation 5. Thyroidectomy HOME MEDICATIONS: Home Medications Medication Instructions Recorded Confirmed Multivitamins, Pediatric Chew 1 tab PO HS 07/16/14 09/07/20 [Poly--Steffi Chew (formulary)] Cholecalciferol [Vitamin D3 (25 8,000 unit PO HS 02/24/15 09/07/20 Mcg = 1000 Iu)] Calcium Carbonate [Calcium] 600 mg PO HS 08/08/18 09/07/20 Cyclobenzaprine [Flexeril] 10 mg PO TID PRN 08/08/18 09/07/20 Levothyroxine Sodium [Tirosint] 250 mcg PO DAILY 08/16/18 09/07/20 Previous Rx's Medication Instructions Recorded Famotidine [Pepcid] 20 mg PO BID #20 tablet 01/01/20 ALLERGIES: Allergies Allergy/AdvReac Type Severity Reaction Status Date / Time cephalexin [From Keflex] Allergy Anaphylaxis Verified 09/07/20 10:30 Penicillins Allergy Anaphylaxis Verified 09/07/20 10:30 omeprazole AdvReac Chest Pain Verified 09/07/20 10:30 SOCIAL HISTORY: Past tobacco use. FAMILY HISTORY: No family history of ulcerative colitis disease or Crohn's disease. Family history of morbid obesity. No lupus in the family. No reports of stomach or esophageal cancer. REVIEW OF ORGAN SYSTEMS: CONSTITUTIONAL: At height of 5 feet 5 inches, her ideal body weight is 149 pounds. Her highest weight is 226 pounds, BMI 37.7. She is 77 pounds overweight. HEENT: Denies any active troubles with vision or hearing. ENDOCRINE: Past glucose intolerance. Has hypothyroidism. CARDIOVASCULAR: No past reports of palpitations or heart attacks or chest pain. RESPIRATORY: Has daytime somnolence. No asthma. GASTROINTESTINAL: Denies any bright red blood per rectum. No diarrhea. Has constipation. GENITOURINARY: No blood in urine. Has hysterectomy MUSCULOSKELETAL: Has lower back pain and joint pain. Has osteoarthritis of the knees and hips NEURO: No headaches. No seizure disorders. PSYCH: No depression. No suicidal ideation. RHEUMATOLOGIC: No lupus. No rheumatoid arthritis. HEMATOLOGIC: Denies any abnormal bleeding or bruising. No personal history of DVTs. SKIN: No rash. No skin cancer. PHYSICAL EXAM: VITAL SIGNS: Height 5 foot 5 inches, weight 209 pounds. BMI 36.1 Vital Signs Temp 97.3 F L 11/18/20 17:30 Pulse 98 11/18/20 17:30 Resp 18 11/18/20 17:30 BP 115/74 11/18/20 17:30 Pulse Ox GENERAL: Well-developed in no acute distress. HEENT: No scleral icterus. Extraocular movements grossly intact. Hears conversational speech. No nasal drainage. NECK: Supple without lymphadenopathy. CHEST: Nonlabored respirations with equal bilateral excursions. CARDIOVASCULAR: Regular rate and rhythm. Distal 2+ pulses. ABDOMEN: Obese, soft, nontender, nondistended. MUSCULOSKELETAL: No clubbing, cyanosis. NEURO: No focal or lateralizing signs. Cranial nerves 2 through 12 grossly within normal limits. PSYCH: Appropriate affect. Alert and oriented to person, place and time. SKIN: Good skin turgor. Well perfused. ASSESSMENT: 1. Morbid obesity due to excess calories 2. Body mass index of 37.7 to 36.1 3. Gastroesophageal reflux disease 4. Hypothyroidism 5. Pernicious anemia 6. History of uterine cancer 7. Bashir's thyroiditis 8. Hypercholesterolemia 9. Chronic constipation 10. Postoperative nausea vomiting 11. Hypertension 12. Vitamin D deficiency 13. Secondary hyperparathyroidism 14. COVID vaccinated PLAN: 1. She has elected for a gastric bypass. Robotic assisted approach described. 2. An 8 page second-generation bariatric consent form was reviewed in detail including potential of bleeding, infection, leaks, adequate weight loss, nutritional deficiencies which the patient demonstrated understanding of the risks. 3. Continues 2 week high-protein low caloric 800 kcal diet described to address hepatomegaly. 4. Preoperative labs including complete metabolic panel and CBC with type and screen recommended. 5. DVT prophylaxis per [place] [facility] collaborative. 6. Antibiotic prophylaxis. 7. Inpatient hospitalization anticipated for more than 2 nights. 8. All questions and concerns were addressed with the patient. 9. She is at elevated risk for perioperative complications from prior gastric surgery. 10. NSQIP reviewed for risks. Objective - Vital Signs Vital signs: Vital Signs Temp 97.3 F L 11/18/20 17:30 Pulse 98 11/18/20 17:30 Resp 18 11/18/20 17:30 BP 115/74 11/18/20 17:30 Pulse Ox Intake & Output 11/17/20 11/18/20 11/18/20 18:59 06:59 18:59 Weight 98.43 kg
== END ==
LOC: BARWHC3 16:38
PROVIDERS: ATTEND Surgery Plastic and Reconstructive Surgery
DX: E66.01 Morbid (severe) obesity due to excess calories (principal); D51.0 Vitamin B12 deficiency anemia due to intrinsic factor deficiency; E06.3 Autoimmune thyroiditis; E55.9 Vitamin D deficiency, unspecified; E78.00 Pure hypercholesterolemia, unspecified; G47.33 Obstructive sleep apnea (adult) (pediatric); I11.9 Hypertensive heart disease without heart failure; K21.9 Gastro-esophageal reflux disease without esophagitis; K59.09 Other constipation; N25.81 Secondary hyperparathyroidism of renal origin; Z85.42 Personal history of malignant neoplasm of other parts of uterus; Z87.891 Personal history of nicotine dependence; Z98.84 Bariatric surgery status; Z68.36 Body mass index [BMI] 36.0-36.9, adult; Z79.899 Other long term (current) drug therapy; Z88.0 Allergy status to penicillin; Z88.1 Allergy status to other antibiotic agents; Z88.8 Allergy status to other drugs, medicaments and biological substances
CPT/HCPCS: 99211

== ENCOUNTER 2020-11-23 06:47 | Inpatient (IN) | payer OTHER ==
[~2020-11-23 06:47] MED LIST changes: +ACETAMINOPHEN TAB 500 MG TAB PO PRN; +CLINDAMYCIN 900 MG in DEXTROSE 5% IN WATER 50 ML IVPB PRN; +DEXAMETHASONE SOD PHOSPHATE 4 MG/ML 1 ML VIAL IV ONE; +FAMOTIDINE 20 MG/2 ML VIAL IV PRN; +GABAPENTIN 300 MG CAP PO PRN; +GENTAMICIN 360 MG in SODIUM CHLORIDE 0.9% 100 ML IVPB PRN; +LACTATED RINGERS 1,000 ML IV ONE; -LACTATED RINGERS 1,000 ML IV SCH; +LIDOCAINE 1% (10MG/ML) FOR IV START INTRADERMA PRN; +MIDAZOLAM 2 MG/2 ML VIAL IV PRN; +ONDANSETRON 4 MG/2 ML VIAL IVP ONE
[2020-11-23] MEDS ORDERED: CHLORHEXIDINE GLUCONATE 15 ML CUP MUCOUS MEM PRN (07:00)
[2020-11-23] MEDS ORDERED: ENOXAPARIN 40 MG/0.4 ML SYRINGE SQ PRN (07:00)
--- NOTE | 2020-11-23 09:08 | P.GSHP ---
History of Present Illness H&P Date: 11/23/20 CHIEF COMPLAINT: Morbid obesity HISTORY OF PRESENT ILLNESS: Tran Rivero is a 59-year-old female who comes with lifelong morbid obesity. As a result of her morbid obesity, she has developed obstructive sleep apnea including hypertensive heart disease and diabetes. 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 At height of 5 feet 5 inches, her ideal body weight is 149 pounds. Her highest weight is 226 pounds, BMI 37.7. She comes in 215 from 222 pounds. PAST MEDICAL HISTORY: 1. Morbid obesity due to excess calories 2. Body mass index of 37.7 3. Gastroesophageal reflux disease 4. Hypothyroidism 5. Pernicious anemia 6. History of uterine cancer 7. Bashir's thyroiditis 8. Hypercholesterolemia 9. Chronic constipation 10. Postoperative nausea vomiting 11. Hypertension PAST SURGICAL HISTORY: 1. Hysterectomy 2. Esophagogastroduodenoscopy 3. Cholecystectomy 4. Tubal ligation 5. Thyroidectomy HOME MEDICATIONS: Home Medications Medication Instructions Recorded Confirmed Multivitamins, Pediatric Chew 1 tab PO HS 07/16/14 11/18/20 [Poly--Steffi Chew (formulary)] Cholecalciferol [Vitamin D3 (25 8,000 unit PO HS 02/24/15 11/18/20 Mcg = 1000 Iu)] Calcium Carbonate [Calcium] 600 mg PO HS 08/08/18 11/18/20 Levothyroxine Sodium [Tirosint-Steffi] 225 mcg PO QAM 11/18/20 11/18/20 Meloxicam 7.5 mg PO HS PRN 11/18/20 11/18/20 Vitamin B 12 Injections 1 applicate IJ DIRECTED 11/18/20 11/18/20 Zyrtec(Dose Unknown) 1 tab PO HS 11/18/20 11/18/20 ALLERGIES: Allergies Allergy/AdvReac Type Severity Reaction Status Date / Time cephalexin [From Keflex] Allergy Anaphylaxis Verified 11/18/20 17:40 Penicillins Allergy Anaphylaxis Verified 11/18/20 17:40 omeprazole AdvReac Chest Pain Verified 11/18/20 17:40 SOCIAL HISTORY: Past tobacco use. FAMILY HISTORY: No family history of ulcerative colitis disease or Crohn's disease. Family history of morbid obesity. No lupus in the family. No reports of stomach or esophageal cancer. REVIEW OF ORGAN SYSTEMS: CONSTITUTIONAL: At height of 5 feet 5 inches, her ideal body weight is 149 pounds. Her highest weight is 226 pounds, BMI 37.7. She is 77 pounds overweight. HEENT: Denies any active troubles with vision or hearing. ENDOCRINE: Past glucose intolerance. Has hypothyroidism. CARDIOVASCULAR: No past reports of palpitations or heart attacks or chest pain. RESPIRATORY: Has daytime somnolence. No asthma. GASTROINTESTINAL: Denies any bright red blood per rectum. No diarrhea. Has constipation. GENITOURINARY: No blood in urine. Has hysterectomy MUSCULOSKELETAL: Has lower back pain and joint pain. Has osteoarthritis of the knees and hips NEURO: No headaches. No seizure disorders. PSYCH: No depression. No suicidal ideation. RHEUMATOLOGIC: No lupus. No rheumatoid arthritis. HEMATOLOGIC: Denies any abnormal bleeding or bruising. No personal history of DVTs. SKIN: No rash. No skin cancer. PHYSICAL EXAM: VITAL SIGNS: Height 5 foot 5 inches, weight 215 pounds. BMI 35.9 GENERAL: Well-developed in no acute distress. HEENT: No scleral icterus. Extraocular movements grossly intact. Hears conversational speech. No nasal drainage. NECK: Supple without lymphadenopathy. CHEST: Nonlabored respirations with equal bilateral excursions. CARDIOVASCULAR:Distal 2+ pulses. ABDOMEN: Obese, soft, nontender, nondistended. MUSCULOSKELETAL: No clubbing, cyanosis. NEURO: No focal or lateralizing signs. Cranial nerves 2 through 12 grossly within normal limits. PSYCH: Appropriate affect. Alert and oriented to person, place and time. SKIN: Good skin turgor. Well perfused. ASSESSMENT: 1. Morbid obesity due to excess calories 2. Body mass index of 37.7 to 35.9 3. Gastroesophageal reflux disease 4. Hypothyroidism 5. Pernicious anemia 6. History of uterine cancer 7. Bashir's thyroiditis 8. Hypercholesterolemia 9. Chronic constipation 10. Postoperative nausea vomiting 11. Hypertension 12. Vitamin D deficiency 13. Secondary hyperparathyroidism 14. COVID vaccinated 15. 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 Bariatric options between a sleeve, band and a Raciel-en-Y gastric bypass were reviewed in detail. The patient elected for a gastric bypass. Robotic assisted approach described. 2. Antibiotic prophylaxis. 3. Inpatient hospitalization anticipated for more than 2 nights. Past Medical History Past Medical History: Blood Disorder, Cancer, GERD/Reflux, Osteoarthritis (OA), Skin Disorder, Thyroid Disorder Additional Past Medical History / Comment(s): PERNICIOUS ANEMIA, hx UTERINE CA, chronic constipation. Hx Bashir's with thyroid nodules. Borderline high cholestrol. hx hiatal hernia, psoriasis, "prediabetic"-diet controled, History of Any Multi-Drug Resistant Organisms: None Reported Past Surgical History: Cholecystectomy, Hysterectomy, Tubal Ligation Additional Past Surgical History / Comment(s): BONE MARROW BX, thyroidectomy. surgery to hiatal hernia, Past Anesthesia/Blood Transfusion Reactions: Family History of Problems w/ Anesthesia, Motion Sickness, Postoperative Nausea & Vomiting (PONV) Additional Past Anesthesia/Blood Transfusion Reaction / Comment(s): STATES HAS "A LOT OF TROUBLE COMING OUT OF ANESTHESIA" POST OP HAD NURSE SIT NEXT TO HER FO R 5 HOURS after hysterectomy, STATED WAS APNEIC.. no problems with last surgery at [facility] with general anesthesia per pt Smoking Status: Former smoker - Past Family History Mother Family Medical History: Cancer Additional Family Medical History / Comment(s): colon Father Family Medical History: Blood Disorder, Cancer Additional Family Medical History / Comment(s): hemophelia Medications and Allergies Home Medications Medication Instructions Recorded Confirmed Type Multivitamins, Pediatric Chew 1 tab PO HS 07/16/14 11/18/20 History [Poly--Steffi Chew (formulary)] Cholecalciferol [Vitamin D3 (25 8,000 unit PO HS 02/24/15 11/18/20 History Mcg = 1000 Iu)] Calcium Carbonate [Calcium] 600 mg PO HS 08/08/18 11/18/20 History Levothyroxine Sodium [Tirosint-Steffi] 225 mcg PO QAM 11/18/20 11/18/20 History Meloxicam 7.5 mg PO HS PRN 11/18/20 11/18/20 History Vitamin B 12 Injections 1 applicate IJ DIRECTED 11/18/20 11/18/20 History Zyrtec(Dose Unknown) 1 tab PO HS 11/18/20 11/18/20 History Allergies Allergy/AdvReac Type Severity Reaction Status Date / Time cephalexin [From Keflex] Allergy Anaphylaxis Verified 11/18/20 17:40 Penicillins Allergy Anaphylaxis Verified 11/18/20 17:40 omeprazole AdvReac Chest Pain Verified 11/18/20 17:40
[2020-11-23 10:11] LABS: Glucose,Whole Blood 84 mg/dL (75-99)
[2020-11-23] MEDS ORDERED: LACTATED RINGERS 1,000 ML IV ONE ×2 (10:12→13:50)
[2020-11-23] MEDS ORDERED: MIDAZOLAM 2 MG/2 ML VIAL IV ONE (10:44)
[2020-11-23] MEDS ORDERED: fentaNYL (PF) 50 MCG/ML 2 ML AMP IV ONE (11:00)
[2020-11-23] MEDS ORDERED: PROPOFOL 10 MG/ML 20 ML VIAL IV ONE (11:34)
[2020-11-23] MEDS ORDERED: HYDROmorphone (PF) 1 MG/ML ONE (11:34)
[2020-11-23] MEDS ORDERED: LIDOCAINE 1% INJ 10MG/ML (20 ML MDV) ONE (11:34)
[2020-11-23] MEDS ORDERED: SUCCINYLCHOLINE CHLORIDE 100 MG/5 ML SYR IV ONE (11:34)
[2020-11-23] MEDS ORDERED: ESMOLOL 100 MG/10 ML VIAL ONE (11:34)
[2020-11-23] MEDS ORDERED: fentaNYL (PF) 50 MCG/ML 2 ML AMP ONE (11:34)
[2020-11-23] MEDS ORDERED: ROCURONIUM 10 MG/ML (5 ML VIAL) IV ONE (11:34)
[2020-11-23] MEDS ORDERED: ROPIVACAINE 5 MG/ML 30 ML VIAL ONE (11:34)
[2020-11-23] MEDS ORDERED: NEOSTIGMINE 1 MG/ML 10 ML VIAL ONE (11:34)
[2020-11-23] MEDS ORDERED: GLYCOPYRROLATE 0.2 MG/ML 2 ML VIAL ONE (11:34)
[2020-11-23] MEDS ORDERED: KETAMINE 10 MG/ML 20 ML VIAL ONE (11:34)
[2020-11-23] MEDS ORDERED: MIDAZOLAM 2 MG/2 ML VIAL ONE (11:34)
--- NOTE | 2020-11-23 11:45 | P.ANPRN ---
Procedure Note - Anesthesia - Nerve Block Performed Bilateral Erector Spinae Time Out Performed: Yes (:43) Date of Procedure: 11/23/20 Procedure Start Time: : Procedure Stop Time: :58 Location of Patient: PreOp Indication: Acute Post-Operative Pain, Requested by Surgeon (Dr Conte) Sedation Type: Sedate with meaningful contact maintained Preparation: Sterile Prep Position: Prone Catheter: None Needle Types: Pajunk Needle Gauge: 21 Ultrasound used to visualize needle placement: Yes Ultrasound used to observe medication spread: Yes Injectate: 0.5% Ropivacaine (see comment for volume) (15cc + 10cc PF normal saline each side) Blood Aspirated: No Pain Paresthesia on Injection Noted: No Resistance on Injection: Normal Image Stored and Saved: Yes Events: Uneventful and Well Tolerated
[2020-11-23] MEDS ORDERED: LIDOCAINE 0.5%-EPI 1:200,000 50 ML VIAL SQ ONE (12:06)
[2020-11-23] MEDS ORDERED: diphenhydrAMINE 50 MG/ML 1 ML VIAL IVP PRN (15:23)
[2020-11-23] MEDS ORDERED: NALOXONE 0.4 MG/ML 1 ML VIAL IV PRN (15:23)
--- NOTE | 2020-11-23 15:29 | P.OP ---
Date of Procedure: 11/23/20 Description of Procedure: SURGEON: IESHA PEREIRA MD PREOPERATIVE DIAGNOSES: 1. Morbid obesity due to excess calories 2. Body mass index of 37.7 to 35.9 3. Gastroesophageal reflux disease 4. Hypothyroidism 5. Pernicious anemia 6. History of uterine cancer 7. Bashir's thyroiditis 8. Hypercholesterolemia 9. Chronic constipation 10. Postoperative nausea vomiting 11. Hypertension 12. Vitamin D deficiency 13. Secondary hyperparathyroidism 14. COVID vaccinated 15. Diabetes type 2 16. Fortune's esophagus POSTOPERATIVE DIAGNOSES: 1. Morbid obesity due to excess calories 2. Body mass index of 37.7 to 35.9 3. Gastroesophageal reflux disease 4. Hypothyroidism 5. Pernicious anemia 6. History of uterine cancer 7. Bashir's thyroiditis 8. Hypercholesterolemia 9. Chronic constipation 10. Postoperative nausea vomiting 11. Hypertension 12. Vitamin D deficiency 13. Secondary hyperparathyroidism 14. COVID vaccinated 15. Diabetes type 2 16. Fortune's esophagus 17. Pelvic adhesions 18. Recurrent hiatal hernia OPERATION: 1. Robotic assisted da Holden Xi laparoscopic Dede-en-Y gastric bypass, 75 cm antecolic antegastric Dede limb, with 25 mm EEA. 2. Robotic assisted da Holden Xi laparoscopic lysis of adhesions 3. Intraoperative esophagogastrojejunoscopy. ANESTHESIA: GETA and local ESTIMATED BLOOD LOSS: 10 mL SPECIMENS REMOVED: None. COMPLICATIONS: NONE. Operative Findings: 1. Biliopancreatic limb 60 cm 2. Bypass performed using 75 cm dede limb secondary to avoid increased tension at 150 cm. 3. Jejunojejunostomy defect obliterated by intra-abdominal fat 4. Leak test negative with gastrojejunal anastomosis patent and hemostatic. 5. Reinforcement sutures were placed along the gastrojejunal anastomosis at 12:00, 9:00 and 3:00 6. No fatty liver disease 7. Thoracic length 17 cm 8. Peritoneal adhesions omentum to pelvis as well as omentum to sigmoid colon lysed. 9. Short mesentery prohibiting bypass at 100 or 150 cm 10. Oozing at staple line of gastrojejunal anastomosis prohibiting additional anticoagulation INDICATIONS: Tran Rivero is a 59-year-old female who comes with lifelong morbid obesity. As a result of her morbid obesity, she has developed obstructive sleep apnea including hypertensive heart disease and diabetes. 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 At height of 5 feet 5 inches, her ideal body weight is 149 pounds. Her highest weight is 226 pounds, BMI 37.7. She comes in 215 from 222 pounds. A second-generation bariatric consent form was described in detail including the possibility of protein malnutrition, leaks, gastrojejunal stricture, venous thrombosis, need for further surgery for which she demonstrated understanding. Benefits and risks of the procedure were described at length. Informed consent was obtained. DESCRIPTION: The patient was brought into the operating room theater. She was placed supine. She had received Lovenox subcutaneously for DVT prophylaxis. Additionally she Peridex oral solution as an oral decontaminant was placed per anesthesia. After general induction, the abdomen was prepped and draped in standard sterile fashion. Ioban draping was placed along the abdomen. Sandoval catheter was placed A robotic da Holden Xi system was prepped and primed. Incisions were proposed at 15 cm from the xiphoid. Proposed port sites were marked with indelible marker along the anterior axillary line bilaterally, mid clavicular line bilaterally with each port marked 10 cm from each other. The robotic stapler port was marked for the right midclavicular line including along the left midclavicular line. A 5 mm 0 degrees laparoscopic trocar entry was performed along the left upper quadrant. The abdomen was insufflated to 15 mmHg pressure, which she tolerated well. Diagnostic laparoscopy demonstrated no injury to bowel, viscera, or mesentery. The liver was consistent with her 2-week protein diet. An 8 mm camera port was placed left lateral to the umbilicus at the epigastrium, 15 cm distal to the xiphoid. Next, 12-mm robot stapler port was placed along the right mid abdomen. An 12 mm port was exchanged along the left upper quadrant. An 8 mm port was placed on the left lateral abdominal wall under direct visualization Please note that the ports were placed 18 to 20 cm away from the target anatomy of the stomach. Care was taken to check that each robotic arm was safely away from collision with the bed or the patient. At the epigastrium, a medium sized Summer liver retractor was placed under direct visualization with the [place] Car Attendant placed under the right shoulder of the patient. The patient was repositioned in reverse Trendelenburg position at 21-degrees after lowering the bed. The robot was docked over the patient. Using grasper for arm 3, a grasper for arm 1, including vessel sealer for arm 4, the robotic system was docked and primed as described. Instruments were interchanged by the pier master assistant including endoscissors, the needle rail car driver, and stapler. I had sat at the console. Next, the transverse mesocolon was elevated with pelvic adhesion found at left lower quadrant, ometum to sigmoid colon. The transverse mesocolon was reflected into the upper abdomen. The ligament of Treitz was identified and measured 60 cm antegrade and marked using 3-0 Silk. The jejunum was divided at the 60 cm point using 60-mm white loads above the suture measurement. The biliopancreatic limb was held in place. The Dede limb was measured 75 cm in an antegrade fashion to avoid tension along the proposed gastrojejunal anastomosis from short mesentery. At 75 cm along the anti-mesenteric border of the Dede limb, a jejunojejunostomy was proposed whereby enterotomies were created along the biliopancreatic limb including the Dede limb using a Bovie cautery. A stay suture of 3-0 Slik was placed to align and create the anastomosis. The enterotomies along the anti- mesenteric borders were created followed by unidirectional fire from the patient's right side using 60 mm blue loads Smart technology robotic stapler. The jejunojejunostomy was found to be hemostatic. The enterotomy was closed after horizontal mattress stitch of 3-0 silk used to elevate the enterotomy followed by closure with the robotic stapler blue load. The jejunal limb was temporarily tacked along the left upper quadrant. Attention was now brought to the creation of the gastrojejunostomy. Along the lesser curvature of the stomach, dissection was made along the retrogastric space to allow first firing of the robotic staple. Green loads of 60 mm staplers were used to divide the stomach to create the gastric pouch. The patient was then prepared for placement of a Orvil. The patient was Mallampati 2. A 25-mm Orvil was selected for placement by the nurse senior sharepoint developer. The Orvil tubing was placed anterior to the staple line of the gastric pouch and brought out through the left inferior lateral port. I re-scrubbed into the case. The robotic arms were temporarily undocked. The Orvil was then carefully and successfully navigated with the help of the nurse senior sharepoint developer into the gastric pouch. The sutures were identified and divided. The tubing was from the 25 mm anvil. As the Orvil had been placed, the blind jejunal limb was brought proximally into the upper abdomen. No torsion was found upon the Dede limb. No tension was identified as the limb was brought along the upper abdomen. The blind jejunal limb was previously opened using endo-scissors with cautery. The 25-mm EEA stapler was brought through the left anterior lateral port site from the left side. The EEA stapler was brought through the open jejunal limb and its needle was deployed at the antimesenteric border where the anvil were mated for approximately 1 minute upon firing. The stapler was removed after irrigating the shaft of the instrument with warm normal saline. Donuts were found to be intact and on both sides. The [employer] Xi robot arms were then re-docked. I sat at the console. The open jejunal limb defect was closed using 60 mm blue loads after releasing any tension from the blind jejunal limb. Care was taken to avoid any long blind limb to avoid candycane syndrome. Reinforcement sutures were placed along the gastrojejunal anastomosis and placed along the 12:00, 9:00 and 3 o'clock position using 3-0 Vicryl. The jejunojejunostomy mesentery and Herrera's defect were obliterated by abdominal fat. I then went to the head of the bed to perform the esophagogastrojejunoscopy and a leak test. An Olympus gastroscope was passed alongthe posterior oropharynx which was unremarkable for any injury to the vocal cords. The scope was passed down to the proximal portion of the pouch, whereby mild oozing was encountered. Blood clots were suctioned. Excellent visualization of the gastrojejunostomy anastomosis, including the Dede limb was encountered with endoscopic image obtained. The anastomosis was found to be patent. The gastrointestinal tract was desufflated. No evidence of intraoperative leak was encountered as the gastric pouch and anastomosis were submerged under normal saline solution. The robot was then undocked. I then went back to the bedside of the patient, whereby with coordinated effort of the pier master assistant, irrigation was aspirated from the upper abdominal cavity. Tisseel was placed circumferentially over the anastomosis of the gastrojejunostomy. The fascial defect of the EEA stapler was closed using Dwight Hansen and 0 Vicryl. All instruments and pneumoperitoneum were evacuated from the abdominal cavity. The port correlating with the EEA stapler device was cleansed with normal saline solution and hydrogen peroxide. The rest of incisions were reapproximated using 4-0 Monocryl in an interrupted subcuticular fashion. Local anesthetic was infiltrated along the skin for postop analgesia. Liquid glue was applied to the skin. OptiFoam dressing was placed along the EEA stapler site. At the end of the procedure, needle, sponge and instrument count had been verified correct by the surgical garment fitter. The patient had tolerated the procedure well and was extubated and taken to the postanesthesia unit in stable condition. Intraoperative findings were described to the patient's family who were very pleased with the level of care.
[2020-11-23] MEDS: HYDROmorphone 0.5 MG/0.5 ML SYRINGE IVP PRN ×2 (15:36→15:54)
[2020-11-23] MEDS ORDERED: ONDANSETRON 4 MG/2 ML VIAL IVP ONE (15:54)
[2020-11-23] MEDS ORDERED: METOCLOPRAMIDE 5 MG/ML 2 ML VIAL IVP ONE (16:28)
[2020-11-23] MEDS: ACETAMINOPHEN IV (For NPO) 1,000 MG in EMPTY BAG 1 BAG IVPB SCH ×2 (16:54→23:57)
[2020-11-23] MEDS: metroNIDAZOLE-NS PMX 500 MG in SALINE 1 100ML.BAG IVPB SCH (16:54)
[2020-11-23] MEDS: SIMETHICONE 40 MG/0.6 ML DROPS 2,000 MG/30 ML BOTTLE PO SCH ×2 (16:55→23:57)
[2020-11-23] MEDS: 0.9% NACL WITH KCL 20 MEQ/L 1,000 ML IV SCH ×2 (17:10→23:55)
[2020-11-23] MEDS ORDERED: ONDANSETRON 4 MG/2 ML VIAL IVP SCH (18:00)
[2020-11-23] MEDS: ALBUTEROL NEBULIZED 2.5 MG/3 ML INHALATION SCH ×2 (18:22→20:52)
[2020-11-23] MEDS: PANTOPRAZOLE 40 MG/10 ML VIAL IV SCH (20:31)
[2020-11-23] MEDS: HYDROmorphone 1 MG/ML 1 ML SYRINGE IVP PRN (20:32)
[2020-11-23] MEDS: ONDANSETRON 4 MG/2 ML VIAL IVP PRN (20:53)
[2020-11-24] MEDS: metroNIDAZOLE-NS PMX 500 MG in SALINE 1 100ML.BAG IVPB SCH ×4 (00:37→23:54)
[2020-11-24] MEDS: ONDANSETRON 4 MG/2 ML VIAL IVP PRN ×4 (02:55→23:55)
[2020-11-24] MEDS: SIMETHICONE 40 MG/0.6 ML DROPS 2,000 MG/30 ML BOTTLE PO SCH ×4 (05:24→23:55)
[2020-11-24] MEDS: ACETAMINOPHEN IV (For NPO) 1,000 MG in EMPTY BAG 1 BAG IVPB SCH ×2 (05:24→12:00)
[2020-11-24] MEDS: PANTOPRAZOLE 40 MG/10 ML VIAL IV SCH ×2 (07:46→20:47)
[2020-11-24] MEDS: LEVOFLOXACIN 500MG-D5W PMX 500 MG in DEXTROSE/WATER 1 100ML.BAG IVPB SCH (07:47)
[2020-11-24] MEDS ORDERED: 0.9% NACL WITH KCL 20 MEQ/L 1,000 ML IV SCH (08:00)
[2020-11-24] MEDS: ALBUTEROL NEBULIZED 2.5 MG/3 ML INHALATION SCH ×4 (08:06→19:03)
[2020-11-24] MEDS ORDERED: SODIUM CHLORIDE 0.9% 1,000 ML IV ONE (09:04)
--- NOTE | 2020-11-24 09:04 | P.PN ---
Subjective Progress Note Date: 11/24/20 CHIEF COMPLAINT: Morbid obesity HISTORY OF PRESENT ILLNESS: Tran Rivero is a 59-year-old female status post gastric bypass 11/23/2020. Patient has been vomiting blood yesterday and early this morning as to be expected from oozing along staple line. She had also received Lovenox preoperatively. She is ambulating. Her oral intake is low due to nausea. Pain is controlled. REVIEW OF ORGAN SYSTEMS: No fevers or chills. Had nausea and emesis. No chest pain. No dyspnea on exertion PHYSICAL EXAM: VITAL SIGNS: Reviewed GENERAL: Well-developed in no acute distress. HEENT: No scleral icterus. Extraocular movements grossly intact. Hears conversational speech. No nasal drainage. NECK: Supple without lymphadenopathy. CHEST: Nonlabored respirations with equal bilateral excursions. CARDIOVASCULAR:Distal 2+ pulses. ABDOMEN: Incisions intact. No peritonitis. MUSCULOSKELETAL: No clubbing, cyanosis. NEURO: No focal or lateralizing signs. Cranial nerves 2 through 12 grossly within normal limits. PSYCH: Appropriate affect. Alert and oriented to person, place and time. SKIN: Good skin turgor. Well perfused. ASSESSMENT: 1. Morbid obesity due to excess calories 2. Body mass index of 37.7 to 35.9 3. Gastroesophageal reflux disease 4. Hypothyroidism 5. Pernicious anemia 6. History of uterine cancer 7. Bashir's thyroiditis 8. Hypercholesterolemia 9. Chronic constipation 10. Postoperative nausea vomiting 11. Hypertension 12. Vitamin D deficiency 13. Secondary hyperparathyroidism 14. COVID vaccinated 15. 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 Status post gastric bypass PLAN: 1. Recommend IV fluid hydration. 2. Scopolamine patch for nausea. 3. No further anticoagulation. Objective - Vital Signs Vital signs: Vital Signs Temp 98.1 F 11/24/20 08:00 Pulse 101 H 11/24/20 08:52 Resp 16 11/24/20 08:52 BP 131/71 11/24/20 08:52 Pulse Ox 92 L 11/24/20 08:52 Intake & Output 11/23/20 11/24/20 11/24/20 18:59 06:59 18:59 Intake Total 1765 Output Total 10 Balance 1755 Weight 96.7 kg Intake: IV 1765 Output: Estimated Blood Loss 10 Other: Voiding Method Toilet # Voids 1 - Labs CBC & Chem 7: 11/25/20 06:28 11/25/20 06:28 Assessment and Plan (1) Morbid obesity due to excess calories Current Visit: Yes Status: Acute Code(s): E66.01 - MORBID (SEVERE) OBESITY DUE TO EXCESS CALORIES SNOMED Code(s): 518510224 (2) BMI 35.0-35.9,adult Current Visit: Yes Status: Acute Code(s): Z68.35 - BODY MASS INDEX [BMI] 35.0-35.9, ADULT SNOMED Code(s): 819122172 (3) Sleep apnea Current Visit: Yes Status: Acute Code(s): G47.30 - SLEEP APNEA, UNSPECIFIED SNOMED Code(s): 01899417 (4) Hypertensive heart disease Current Visit: Yes Status: Acute Code(s): I11.9 - HYPERTENSIVE HEART DISEASE WITHOUT HEART FAILURE SNOMED Code(s): 57373845 (5) Diabetes type 2, controlled Current Visit: Yes Status: Acute Code(s): E11.9 - TYPE 2 DIABETES MELLITUS WITHOUT COMPLICATIONS SNOMED Code(s): 15649407 (6) Barretts esophagus Current Visit: No Status: Acute Code(s): K22.70 - ALONSO'S ESOPHAGUS WITHOUT DYSPLASIA SNOMED Code(s): 170081064
[2020-11-24] MEDS: SCOPOLAMINE 1.5MG/72HR PATCH TRANSDERM SCH (09:45)
[2020-11-24 10:08] VITALS: BMI 35.4
[2020-11-24 10:19] LABS: Basophils # (A) 0.03 X 10*3/uL (0.00-0.10); Basophils % (A) 0.2 %; Eosinophils # (A) 0 X 10*3/uL (0.04-0.35); Eosinophils % (A) 0 %; HCT 34.9 % (37.2-46.3); Lymphocytes # (A) 1.25 X 10*3/uL (0.90-5.00); Lymphocytes % (A) 6.6 %; MCH 27.2 pg (27.0-32.0); MCHC 31.5 g/dL (32.0-37.0); MCV 86.4 fL (80.0-97.0); Mean Platelet Volume 11.5 fL (9.5-12.2); Monocytes # (A) 1.23 X 10*3/uL (0.20-1.00); Monocytes % (A) 6.4 %; Neutrophils # (A) 16.48 X 10*3/uL (1.80-7.70); Neutrophils % (A) 86.3 %; Platelet Count 364 X 10*3/uL (140-440); RBC 4.04 X 10*6/uL (4.10-5.20); RDW 13.8 % (11.5-14.5); WBC 19.08 X 10*3/uL (4.50-10.00)
[2020-11-24 11:25] LABS: African American GFR (CKD) 94.2 (60.0-200.0); Anion Gap 6.1 mmol/L (4.00-12.00); Calcium 8.4 mg/dL (8.7-10.3); Carbon Dioxide 25.9 mmol/L (21.6-31.8); Magnesium 1.7 mg/dL (1.5-2.4); Non-African American GFR(CKD) 81.3 (60.0-200.0); Phosphorus 1.9 mg/dL (2.4-5.1); Potassium 4.8 mmol/L (3.5-5.5)
[2020-11-24] MEDS: SODIUM CHLORIDE 0.9% 1,000 ML IV SCH (13:33)
[2020-11-24] MEDS: MAGNESIUM SULFATE-D5W PMX 1 GM in DEXTROSE/WATER 1 100ML.BAG IVPB SCH ×2 (13:33→14:45)
[2020-11-24] MEDS: SODIUM PHOSPHATE 10 MMOL in SODIUM CHLORIDE 0.9% 250 ML IVPB SCH ×2 (16:46→19:34)
[2020-11-24] MEDS: 0.9% NACL WITH KCL 20 MEQ/L 1,000 ML IV SCH (20:43)
[2020-11-25] MEDS: SODIUM CHLORIDE 0.9% 1,000 ML IV SCH ×4 (01:08→21:05)
[2020-11-25] MEDS ORDERED: metroNIDAZOLE-NS PMX 500 MG in SALINE 1 100ML.BAG IVPB SCH (03:00)
[2020-11-25] MEDS: ONDANSETRON 4 MG/2 ML VIAL IVP PRN ×3 (05:14→19:25)
[2020-11-25] MEDS: SIMETHICONE 40 MG/0.6 ML DROPS 2,000 MG/30 ML BOTTLE PO SCH ×4 (05:14→17:39)
[2020-11-25] MEDS: ALBUTEROL NEBULIZED 2.5 MG/3 ML INHALATION SCH ×4 (08:28→19:41)
[2020-11-25] MEDS ORDERED: SODIUM CHLORIDE 0.9% 2,000 ML IV ONE (08:42)
[2020-11-25] MEDS: metroNIDAZOLE-NS PMX 500 MG in SALINE 1 100ML.BAG IVPB SCH ×2 (09:30→19:25)
[2020-11-25 10:25] LABS: Basophils # (A) 0.04 X 10*3/uL (0.00-0.10); Basophils % (A) 0.2 %; Eosinophils # (A) 0.04 X 10*3/uL (0.04-0.35); Eosinophils % (A) 0.2 %; HCT 37.3 % (37.2-46.3); HGB 11.8 g/dL (12.0-15.0); Lymphocytes # (A) 1.87 X 10*3/uL (0.90-5.00); Lymphocytes % (A) 9.9 %; MCH 27.5 pg (27.0-32.0); MCHC 31.6 g/dL (32.0-37.0); MCV 86.9 fL (80.0-97.0); Mean Platelet Volume 11.7 fL (9.5-12.2); Monocytes # (A) 0.95 X 10*3/uL (0.20-1.00); Neutrophils # (A) 15.92 X 10*3/uL (1.80-7.70); Neutrophils % (A) 84.2 %; Platelet Count 433 X 10*3/uL (140-440); RBC 4.29 X 10*6/uL (4.10-5.20); RDW 14.4 % (11.5-14.5); WBC 18.92 X 10*3/uL (4.50-10.00)
[2020-11-25] MEDS: PANTOPRAZOLE 40 MG/10 ML VIAL IV SCH ×2 (10:37→21:37)
[2020-11-25] MEDS ORDERED: Phosphorus Replacement Protoco 1 EACH MISC MISCELLANE PRN (10:51)
[2020-11-25] MEDS: LEVOFLOXACIN 500MG-D5W PMX 500 MG in DEXTROSE/WATER 1 100ML.BAG IVPB SCH (11:53)
[2020-11-25 13:13] LABS: African American GFR (CKD) 110.7 (60.0-200.0); BUN/Creat Ratio 14.29 Ratio (12.00-20.00); Calcium 8.5 mg/dL (8.7-10.3); Non-African American GFR(CKD) 95.5 (60.0-200.0); Potassium 4.2 mmol/L (3.5-5.5)
[2020-11-25] MEDS: SODIUM PHOSPHATE 10 MMOL in SODIUM CHLORIDE 0.9% 250 ML IVPB SCH ×2 (14:18→16:30)
--- NOTE | 2020-11-25 21:13 | P.PN ---
Subjective Progress Note Date: 11/25/20 CHIEF COMPLAINT: Morbid obesity HISTORY OF PRESENT ILLNESS: Tran Rivero is a 59-year-old female status post gastric bypass 11/23/2020. She has postop nausea and vomiting including emesis with blood. This has improved today. She is now having emesis was bile. No bloody bowel movements. No fevers or chills. She still reports nausea. She is ambulating moderately as anticoagulation is discontinued. REVIEW OF ORGAN SYSTEMS: No fevers or chills. Had nausea and emesis. No chest pain. No dyspnea on exertion PHYSICAL EXAM: VITAL SIGNS: Reviewed GENERAL: Well-developed in no acute distress. HEENT: No scleral icterus. Extraocular movements grossly intact. Hears conversational speech. No nasal drainage. NECK: Supple without lymphadenopathy. CHEST: Nonlabored respirations with equal bilateral excursions. CARDIOVASCULAR:Distal 2+ pulses. ABDOMEN: Incisions intact. No peritonitis. MUSCULOSKELETAL: No clubbing, cyanosis. NEURO: No focal or lateralizing signs. Cranial nerves 2 through 12 grossly within normal limits. PSYCH: Appropriate affect. Alert and oriented to person, place and time. SKIN: Good skin turgor. Well perfused. LABS: Hemoglobin stable between 11-12. WBC elevated appropriately from post stress response. ASSESSMENT: 1. Morbid obesity due to excess calories 2. Body mass index of 37.7 to 35.9 3. Gastroesophageal reflux disease 4. Hypothyroidism 5. Pernicious anemia 6. History of uterine cancer 7. Bashir's thyroiditis 8. Hypercholesterolemia 9. Chronic constipation 10. Postoperative nausea vomiting 11. Hypertension 12. Vitamin D deficiency 13. Secondary hyperparathyroidism 14. COVID vaccinated 15. 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 Status post gastric bypass PLAN: 1. Recommend IV bolus 1 L normal saline due to low oral intake and dehydration. 2. Tigan as needed for nausea or vomiting 3. Supplement for low phosphate and low magnesium 4. Continue hospitalization Objective - Vital Signs Vital signs: Vital Signs Temp 97.8 F 11/25/20 19:14 Pulse 96 11/25/20 19:14 Resp 20 11/25/20 19:14 BP 149/76 11/25/20 19:14 Pulse Ox 93 L 11/25/20 19:14 Intake & Output 11/25/20 11/25/20 11/26/20 06:59 18:59 06:59 Other: Voiding Method Toilet # Voids 2 2 # Bowel Movements 2 - Labs CBC & Chem 7: 11/25/20 06:28 11/25/20 06:28 Labs: Abnormal Lab Results - Last 24 Hours (Table) 11/25/20 11/25/20 Range/Units 06:28 06:28 WBC 18.92 H (4.50-10.00) X 10*3/uL Hgb 11.8 L (12.0-15.0) g/dL MCHC 31.6 L (32.0-37.0) g/dL Immature Gran # 0.10 H (0.00-0.04) X 10*3/uL Neutrophils # 15.92 H (1.80-7.70) X 10*3/uL Chloride 111 H (96-109) mmol/L Carbon Dioxide 21.0 L (21.6-31.8) mmol/L Glucose 121 H (70-110) mg/dL Calcium 8.5 L (8.7-10.3) mg/dL Assessment and Plan (1) Morbid obesity due to excess calories Current Visit: Yes Status: Acute Code(s): E66.01 - MORBID (SEVERE) OBESITY DUE TO EXCESS CALORIES SNOMED Code(s): 775249405 (2) BMI 35.0-35.9,adult Current Visit: Yes Status: Acute Code(s): Z68.35 - BODY MASS INDEX [BMI] 35.0-35.9, ADULT SNOMED Code(s): 567605599 (3) Sleep apnea Current Visit: Yes Status: Acute Code(s): G47.30 - SLEEP APNEA, UNSPECIFIED SNOMED Code(s): 95378543 (4) Hypertensive heart disease Current Visit: Yes Status: Acute Code(s): I11.9 - HYPERTENSIVE HEART DISEASE WITHOUT HEART FAILURE SNOMED Code(s): 12556170 (5) Diabetes type 2, controlled Current Visit: Yes Status: Acute Code(s): E11.9 - TYPE 2 DIABETES MELLITUS WITHOUT COMPLICATIONS SNOMED Code(s): 42143273 (6) Barretts esophagus Current Visit: No Status: Acute Code(s): K22.70 - ALONSO'S ESOPHAGUS WITHOUT DYSPLASIA SNOMED Code(s): 927564043
[2020-11-26] MEDS: SIMETHICONE 40 MG/0.6 ML DROPS 2,000 MG/30 ML BOTTLE PO SCH ×5 (00:16→23:24)
[2020-11-26] MEDS: SODIUM CHLORIDE 0.9% 1,000 ML IV SCH ×4 (01:26→23:24)
[2020-11-26] MEDS: metroNIDAZOLE-NS PMX 500 MG in SALINE 1 100ML.BAG IVPB SCH ×3 (03:04→17:03)
[2020-11-26] MEDS: ONDANSETRON 4 MG/2 ML VIAL IVP PRN ×2 (06:12→11:21)
[2020-11-26] MEDS: PANTOPRAZOLE 40 MG/10 ML VIAL IV SCH ×2 (07:11→21:07)
[2020-11-26] MEDS: LEVOFLOXACIN 500MG-D5W PMX 500 MG in DEXTROSE/WATER 1 100ML.BAG IVPB SCH (07:12)
[2020-11-26] MEDS: ALBUTEROL NEBULIZED 2.5 MG/3 ML INHALATION SCH ×4 (08:11→20:27)
[2020-11-26] MEDS ORDERED: TRIMETHOBENZAMIDE 100 MG/ML 2 ML VIAL IM PRN (09:00)
[2020-11-26 10:07] LABS: Basophils # (A) 0.1 k/uL (0-0.2); Basophils % (A) 0 %; Eosinophils # (A) 0.3 k/uL (0-0.7); Eosinophils % (A) 2 %; HCT 34.1 % (34.0-46.0); HGB 11.5 gm/dL (11.4-16.0); Lymphocytes # (A) 2.3 k/uL (1.0-4.8); Lymphocytes % (A) 18 %; MCH 28.1 pg (25.0-35.0); MCHC 33.8 g/dL (31.0-37.0); MCV 83.1 fL (80.0-100.0); Mean Platelet Volume 7.7; Monocytes # (A) 0.5 k/uL (0-1.0); Monocytes % (A) 4 %; Neutrophils # (A) 9.3 k/uL (1.3-7.7); Neutrophils % (A) 74 %; Platelet Count 348 k/uL (150-450); RDW 13.7 % (11.5-15.5); WBC 12.6 k/uL (3.8-10.6)
[2020-11-26 10:19] LABS: African American GFR (CKD) >90 (>60 ml/min/1.73 sqM); Anion Gap 7 mmol/L; Blood Urea Nitrogen 9 mg/dL (7-17); Calcium 8.5 mg/dL (8.4-10.2); Carbon Dioxide 24 mmol/L (22-30); Chloride 109 mmol/L (98-107); Glucose 88 mg/dL (74-99); Magnesium 1.9 mg/dL (1.6-2.3); Non-African American GFR(CKD) >90 (>60 ml/min/1.73 sqM); Potassium 3.6 mmol/L (3.5-5.1); Sodium 140 mmol/L (137-145)
[2020-11-27] MEDS: HYDROmorphone 1 MG/ML 1 ML SYRINGE IVP PRN (00:09)
[2020-11-27] MEDS: metroNIDAZOLE-NS PMX 500 MG in SALINE 1 100ML.BAG IVPB SCH ×2 (02:54→11:29)
[2020-11-27] MEDS: SIMETHICONE 40 MG/0.6 ML DROPS 2,000 MG/30 ML BOTTLE PO SCH ×2 (05:48→11:30)
[2020-11-27] MEDS: SCOPOLAMINE 1.5MG/72HR PATCH TRANSDERM SCH (06:54)
[2020-11-27] MEDS: PANTOPRAZOLE 40 MG/10 ML VIAL IV SCH (06:54)
[2020-11-27] MEDS: LEVOFLOXACIN 500MG-D5W PMX 500 MG in DEXTROSE/WATER 1 100ML.BAG IVPB SCH (06:56)
[2020-11-27] MEDS: ALBUTEROL NEBULIZED 2.5 MG/3 ML INHALATION SCH ×2 (06:58→10:32)
[2020-11-27 07:33] VITALS: BP 134/76; PULSE 87; RESP 16; TEMP 98.1
[2020-11-27 10:18] LABS: African American GFR (CKD) >90 (>60 ml/min/1.73 sqM); Anion Gap 6 mmol/L; Blood Urea Nitrogen 8 mg/dL (7-17); Carbon Dioxide 22 mmol/L (22-30); Chloride 110 mmol/L (98-107); Glucose 78 mg/dL (74-99); Magnesium 1.7 mg/dL (1.6-2.3); Non-African American GFR(CKD) >90 (>60 ml/min/1.73 sqM); Potassium 3.6 mmol/L (3.5-5.1); Sodium 138 mmol/L (137-145)
[2020-11-27 10:19] LABS: Basophils % (A) 0 %; Eosinophils # (A) 0.4 k/uL (0-0.7); Eosinophils % (A) 4 %; HCT 32.1 % (34.0-46.0); HGB 10.7 gm/dL (11.4-16.0); Lymphocytes # (A) 1.5 k/uL (1.0-4.8); Lymphocytes % (A) 16 %; MCH 28.2 pg (25.0-35.0); MCHC 33.4 g/dL (31.0-37.0); MCV 84.4 fL (80.0-100.0); Mean Platelet Volume 8.5; Monocytes # (A) 0.5 k/uL (0-1.0); Monocytes % (A) 5 %; Neutrophils # (A) 6.9 k/uL (1.3-7.7); Neutrophils % (A) 74 %; Platelet Count 332 k/uL (150-450); RDW 13.9 % (11.5-15.5); WBC 9.3 k/uL (3.8-10.6)
[2020-11-27] MEDS: SODIUM CHLORIDE 0.9% 1,000 ML IV SCH (11:30)
--- NOTE | 2020-11-27 13:11 | P.DS ---
Providers Date of admission: 11/23/20 09:33 Expected date of discharge: 11/27/20 Attending physician: Elzbieta Conte Primary care physician: Augustus Alfreod - Discharge Diagnosis(es) (1) Morbid obesity due to excess calories Status: Acute (2) BMI 35.0-35.9,adult Status: Acute (3) Sleep apnea Status: Acute (4) Hypertensive heart disease Status: Acute (5) Diabetes type 2, controlled Status: Acute (6) Barretts esophagus Status: Acute Hospital Course: POSTOPERATIVE DIAGNOSES: 1. Morbid obesity due to excess calories 2. Body mass index of 37.7 to 35.9 3. Gastroesophageal reflux disease 4. Hypothyroidism 5. Pernicious anemia 6. History of uterine cancer 7. Bashir's thyroiditis 8. Hypercholesterolemia 9. Chronic constipation 10. Postoperative nausea vomiting 11. Hypertension 12. Vitamin D deficiency 13. Secondary hyperparathyroidism 14. COVID vaccinated 15. Diabetes type 2 16. Fortune's esophagus 17. Pelvic adhesions 18. Recurrent hiatal hernia INDICATIONS: Tran Rivero is a 59-year-old female who comes with lifelong morbid obesity. As a result of her morbid obesity, she has developed obstructive sleep apnea including hypertensive heart disease and diabetes. 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 Postoperatively, she had nausea and vomiting with intolerance to artificial sweeteners including suite beverages. She also had hematemesis that improved after discontinuing Lovenox. Prior to discharge, she was tolerating diet. She was feeling well. Hemoglobin was stable. Follow-up in the bariatric center in 1 week described. Procedures: OPERATION: 1. Robotic assisted da Holden Xi laparoscopic Raciel-en-Y gastric bypass, 75 cm antecolic antegastric Raciel limb, with 25 mm EEA. 2. Robotic assisted da Holden Xi laparoscopic lysis of adhesions 3. Intraoperative esophagogastrojejunoscopy. ANESTHESIA: GETA and local ESTIMATED BLOOD LOSS: 10 mL SPECIMENS REMOVED: None. COMPLICATIONS: NONE. Patient Condition at Discharge: Good Plan - Discharge Summary Discharge Rx Participant: Yes New Discharge Prescriptions: New Simethicone 40 mg/0.6 ml Drops [Mylicon Drops] 40 mg PO PCHS PRN #30 ml PRN Reason: Gas bisacodyL [Dulcolax] 5 mg PO DAILY PRN #10 tablet. PRN Reason: Constipation Ondansetron Odt [Zofran Odt] 4 mg PO Q8HR PRN #9 tab PRN Reason: Nausea Continue Levothyroxine Sodium [Tirosint-Steffi] 225 mcg PO QAM Zyrtec(Dose Unknown) 1 tab PO HS Vitamin B 12 Injections 1 applicate IJ DIRECTED Discontinued Multivitamins, Pediatric Chew [Poly--Steffi Chew (formulary)] 1 tab PO HS Cholecalciferol [Vitamin D3 (25 Mcg = 1000 Iu)] 8,000 unit PO HS Calcium Carbonate [Calcium] 600 mg PO HS Meloxicam 7.5 mg PO HS PRN PRN Reason: Pain Discharge Medication List Levothyroxine Sodium [Tirosint-Steffi] 225 mcg PO QAM 11/18/20 [History] Vitamin B 12 Injections 1 applicate IJ DIRECTED 11/18/20 [History] Zyrtec(Dose Unknown) 1 tab PO HS 11/18/20 [History] Ondansetron Odt [Zofran Odt] 4 mg PO Q8HR PRN #9 tab 11/27/20 [Rx] Simethicone 40 mg/0.6 ml Drops [Mylicon Drops] 40 mg PO PCHS PRN #30 ml 11/27/20 [Rx] bisacodyL [Dulcolax] 5 mg PO DAILY PRN #10 tablet. 11/27/20 [Rx] Follow up Appointment(s)/Referral(s): Elzbieta Conte MD [STAFF PHYSICIAN] - 12/02/20 1:00 pm Patient Instructions/Handouts: Nutrition after Bariatric Surgery (DC), Bowel Management After Bariatric Surgery (DC), Raciel-en-Y Gastric Bypass (DC) Activity/Diet/Wound Care/Special Instructions: Liquid diet only for 2 weeks until December 07 No lifting over 4 pounds in 4 weeks, December 23October Shower. No soaking in bath tubs,December 07 Please notify your surgeon if you develop nausea and vomiting including new onset of abdominal pain. Continue to use incentive spirometry to prevent pneumonias. Please continue to ambulate at home to prevent blood clots in legs. Follow-up at the bariatric center. Dressings to be discontinued by surgeon in the office. Drink 64 oz of fluid daily. Start protein shakes on . Notify bariatric center for temp over 101.0, increased pain, drainage from incisions. No straws or carbonated beverages. Liquid diet only. Sugar content should be less than 6 g to avoid dumping syndrome. Take MOM for constipation. CRUSH, OPEN, OR CUT TABLETS LARGER THAN A SIZE OF A TIC TAC Discharge Disposition: HOME SELF-CARE
--- NOTE | 2020-11-27 13:15 | P.PN ---
Subjective Progress Note Date: 11/26/20 CHIEF COMPLAINT: Morbid obesity HISTORY OF PRESENT ILLNESS: Tran Rivero is a 59-year-old female status post gastric bypass 11/23/2020. She had intolerance to artificial sweeteners including taste. She often tolerates broth including tea. She is having flatus and having bowel movements. No further blood in stools or hematemesis. REVIEW OF ORGAN SYSTEMS: No fevers or chills. Nausea improving. No chest pain. No dyspnea on exertion PHYSICAL EXAM: VITAL SIGNS: Reviewed GENERAL: Well-developed in no acute distress. HEENT: No scleral icterus. Extraocular movements grossly intact. Hears conversational speech. No nasal drainage. NECK: Supple without lymphadenopathy. CHEST: Nonlabored respirations with equal bilateral excursions. CARDIOVASCULAR:Distal 2+ pulses. ABDOMEN: Incisions intact. No peritonitis. MUSCULOSKELETAL: No clubbing, cyanosis. NEURO: No focal or lateralizing signs. Cranial nerves 2 through 12 grossly within normal limits. PSYCH: Appropriate affect. Alert and oriented to person, place and time. SKIN: Good skin turgor. Well perfused. LABS: WBC improved from over 19,000-12,000 ASSESSMENT: 1. Morbid obesity due to excess calories 2. Body mass index of 37.7 to 35.9 3. Gastroesophageal reflux disease 4. Hypothyroidism 5. Pernicious anemia 6. History of uterine cancer 7. Bashir's thyroiditis 8. Hypercholesterolemia 9. Chronic constipation 10. Postoperative nausea vomiting 11. Hypertension 12. Vitamin D deficiency 13. Secondary hyperparathyroidism 14. COVID vaccinated 15. 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 Status post gastric bypass PLAN: 1. Continue hospitalization with adjustment of diet. We'll start warm bever ages of broth including tea 2. Repeat CBC and BMP for potential discharge tomorrow Objective - Vital Signs Vital signs: Vital Signs Temp 98.1 F 11/27/20 07:32 Pulse 87 11/27/20 07:32 Resp 16 11/27/20 07:32 BP 134/76 11/27/20 07:32 Pulse Ox 93 L 11/27/20 07:32 Intake & Output 11/26/20 11/27/20 11/27/20 18:59 06:59 18:59 Other: Voiding Method Toilet Toilet Toilet # Voids 2 - Labs CBC & Chem 7: 11/27/20 06:50 11/27/20 06:50 Labs: Abnormal Lab Results - Last 24 Hours (Table) 11/27/20 11/27/20 11/27/20 Range/Units 06:50 06:50 06:50 Hgb 10.7 L (11.4-16.0) gm/dL Hct 32.1 L (34.0-46.0) % Chloride 110 H (98-107) mmol/L Calcium 8.0 L (8.4-10.2) mg/dL Phosphorus 2.3 L (2.4-5.1) mg/dL Assessment and Plan (1) Morbid obesity due to excess calories Current Visit: Yes Status: Acute Code(s): E66.01 - MORBID (SEVERE) OBESITY DUE TO EXCESS CALORIES SNOMED Code(s): 016019062 (2) BMI 35.0-35.9,adult Current Visit: Yes Status: Acute Code(s): Z68.35 - BODY MASS INDEX [BMI] 35.0-35.9, ADULT SNOMED Code(s): 204501489 (3) Sleep apnea Current Visit: Yes Status: Acute Code(s): G47.30 - SLEEP APNEA, UNSPECIFIED SNOMED Code(s): 26860388 (4) Hypertensive heart disease Current Visit: Yes Status: Acute Code(s): I11.9 - HYPERTENSIVE HEART DISEASE WITHOUT HEART FAILURE SNOMED Code(s): 98199024 (5) Diabetes type 2, controlled Current Visit: Yes Status: Acute Code(s): E11.9 - TYPE 2 DIABETES MELLITUS WITHOUT COMPLICATIONS SNOMED Code(s): 37668607 (6) Barretts esophagus Current Visit: No Status: Acute Code(s): K22.70 - ALONSO'S ESOPHAGUS WITHOUT DYSPLASIA SNOMED Code(s): 860588845
== END 2020-11-27 15:27 | disposition home or self-care (01) | DRG 620 ==
LOC: 2ORMAIN 09:33 → 4SSUR 15:17
PROVIDERS: ADMIT Surgery Plastic and Reconstructive Surgery; ATTEND Surgery Plastic and Reconstructive Surgery
PROC: 8E0W8CZ Robotic Assisted Procedure of Trunk Region, Via Natural or Artificial Opening Endoscopic (ICD-10-PCS; principal; 2020-11-23 10:40)
PROC: 0D164ZA Bypass Stomach to Jejunum, Percutaneous Endoscopic Approach (ICD-10-PCS; principal; 2020-11-23 10:40)
PROC: 0DJ08ZZ Inspection of Upper Intestinal Tract, Via Natural or Artificial Opening Endoscopic (ICD-10-PCS; principal; 2020-11-23 10:40)
PROC: 0DNW4ZZ Release Peritoneum, Percutaneous Endoscopic Approach (ICD-10-PCS; principal; 2020-11-23 10:40)
DX: E66.01 Morbid (severe) obesity due to excess calories (principal); K92.0 Hematemesis; E55.9 Vitamin D deficiency, unspecified; E11.9 Type 2 diabetes mellitus without complications; D51.0 Vitamin B12 deficiency anemia due to intrinsic factor deficiency; G47.33 Obstructive sleep apnea (adult) (pediatric); E89.0 Postprocedural hypothyroidism; E78.00 Pure hypercholesterolemia, unspecified; H54.7 Unspecified visual loss; I11.9 Hypertensive heart disease without heart failure; K21.9 Gastro-esophageal reflux disease without esophagitis; K22.70 Barrett's esophagus without dysplasia; E06.3 Autoimmune thyroiditis; E21.1 Secondary hyperparathyroidism, not elsewhere classified; K91.0 Vomiting following gastrointestinal surgery; K44.9 Diaphragmatic hernia without obstruction or gangrene; K59.09 Other constipation; N73.6 Female pelvic peritoneal adhesions (postinfective); Z68.37 Body mass index [BMI] 37.0-37.9, adult; Z20.822 Contact with and (suspected) exposure to COVID-19; Z85.42 Personal history of malignant neoplasm of other parts of uterus; Z87.891 Personal history of nicotine dependence; Z90.710 Acquired absence of both cervix and uterus; Z90.49 Acquired absence of other specified parts of digestive tract; Z98.51 Tubal ligation status
CPT/HCPCS: 36410; 64999; 76937; 80048; 80051; 82310; 82565; 83735; 84100; 84520; 85025; 86850; 86900; 86901; 87635; 94640

== ENCOUNTER → 2020-12-02 | Outpatient (CLI) | payer OTHER ==
[2020-12-02 13:23] VITALS: BMI 34.0
[2020-12-02 13:48] VITALS: BP 124/82; PULSE 90; TEMP 98
--- NOTE | 2020-12-02 18:11 | P.PN ---
Subjective Progress Note Date: 12/02/20 DATE OF SERVICE: 12/02/2020 CHIEF COMPLAINT: Status post gastric bypass HISTORY OF PRESENT ILLNESS: Tran Rivero is a 59-year-old female status post gastric bypass, 11/23/2020. She denies any new gastrosophageal reflux disease. She is intolerant to sweet flavors. Otherwise, she is feeling well. No current constipation. No abdominal pain. No nausea or vomiting. No dysphagia. At height of 5 feet 5 inches, her ideal body weight is 149 pounds. Her highest weight is 226 pounds, BMI 37.7. She comes in 211 pound from 217 pounds, 2 weeks ago. She has lost 6 pounds in 2 weeks. Her body mass index is 35.1. Lifetime total weight loss of 15 pounds. Her lifetime percent excess weight loss of 20%. She is 62 pounds overweight. PHYSICAL EXAM: VITAL SIGNS: Height 5 foot 5 inches, weight 211 pounds. BMI 35.1 Vital Signs Temp 98 F 12/02/20 13:43 Pulse 90 12/02/20 13:43 Resp BP 124/82 12/02/20 13:43 Pulse Ox GENERAL: Well-developed in no acute distress. HEENT: No scleral icterus. Extraocular movements grossly intact. Hears conversational speech. No nasal drainage. NECK: Supple without lymphadenopathy. CHEST: Nonlabored respirations with equal bilateral excursions. CARDIOVASCULAR: Regular rate and rhythm. Distal 2+ pulses. ABDOMEN: Incisions intact. No cellulitis. No infection. MUSCULOSKELETAL: No clubbing, cyanosis. NEURO: No focal or lateralizing signs. Cranial nerves 2 through 12 grossly within normal limits. PSYCH: Appropriate affect. Alert and oriented to person, place and time. SKIN: Good skin turgor. Well perfused. ASSESSMENT: 1. Morbid obesity due to excess calories 2. Body mass index of 37.7 to 35.1 3. Gastroesophageal reflux disease 4. Hypothyroidism 5. Pernicious anemia 6. History of uterine cancer 7. Bashir's thyroiditis 8. Hypercholesterolemia 9. Chronic constipation 10. Postoperative nausea vomiting 11. Hypertension 12. Vitamin D deficiency 13. Secondary hyperparathyroidism 14. COVID vaccinated 15. Status post gastric bypass PLAN: 1. Recommend time of recovery at least 4 weeks. 2. Follow-up in one week. 3. Dietitian follow-up. 4. Protein intake of 75 grams daily advised.
== END ==
LOC: BARWHC3 12:15
PROVIDERS: ATTEND Surgery Plastic and Reconstructive Surgery
DX: E66.01 Morbid (severe) obesity due to excess calories (principal); D51.0 Vitamin B12 deficiency anemia due to intrinsic factor deficiency; E06.3 Autoimmune thyroiditis; E55.9 Vitamin D deficiency, unspecified; E78.00 Pure hypercholesterolemia, unspecified; I10 Essential (primary) hypertension; K21.9 Gastro-esophageal reflux disease without esophagitis; K59.09 Other constipation; N25.81 Secondary hyperparathyroidism of renal origin; Z85.42 Personal history of malignant neoplasm of other parts of uterus; Z98.84 Bariatric surgery status; Z68.35 Body mass index [BMI] 35.0-35.9, adult; Z88.0 Allergy status to penicillin; Z88.1 Allergy status to other antibiotic agents; Z88.8 Allergy status to other drugs, medicaments and biological substances; Z87.891 Personal history of nicotine dependence
CPT/HCPCS: 97802; 99211

== ENCOUNTER → 2020-12-09 | Outpatient (CLI) | payer OTHER ==
[2020-12-09 13:46] VITALS: BP 118/79; PULSE 87; RESP 16; TEMP 98.4; BMI 33.7
--- NOTE | 2020-12-09 14:04 | P.PN ---
Subjective Progress Note Date: 12/09/20 DATE OF SERVICE: 12/09/2020 CHIEF COMPLAINT: Status post gastric bypass HISTORY OF PRESENT ILLNESS: Tran Rivero is a 59-year-old female status post gastric bypass, 11/23/2020. She is 2 weeks out. She denies gastroesophageal reflux disease. She has sensitivity to sweet flavors and artificial flavors. She is doing well with Pepcid. Her psoariasis is better. No dysphagia. At height of 5 feet 5 inches, her ideal body weight is 149 pounds. Her highest weight is 226 pounds, BMI 37.7. She comes in 203 pounds from 211 pound, 1 week ago. She has lost 8 pounds in 1 week. Her body mass index is 33.8. Lifetime total weight loss of 23 pounds. Her lifetime percent excess weight loss of 30%. She is 54 pounds overweight. PHYSICAL EXAM: VITAL SIGNS: Height 5 foot 5 inches, weight 203 pounds. BMI 33.8 Vital Signs Temp 98.4 F 12/09/20 13:44 Pulse 87 12/09/20 13:44 Resp 16 12/09/20 13:44 BP 118/79 12/09/20 13:44 Pulse Ox GENERAL: Well-developed in no acute distress. HEENT: No scleral icterus. Extraocular movements grossly intact. Hears conversational speech. No nasal drainage. NECK: Supple without lymphadenopathy. CHEST: Nonlabored respirations with equal bilateral excursions. CARDIOVASCULAR: Regular rate and rhythm. Distal 2+ pulses. ABDOMEN: Incisions intact. No infection. Nontender. Nondistended. MUSCULOSKELETAL: No clubbing, cyanosis. NEURO: No focal or lateralizing signs. Cranial nerves 2 through 12 grossly within normal limits. PSYCH: Appropriate affect. Alert and oriented to person, place and time. SKIN: Good skin turgor. Well perfused. ASSESSMENT: 1. Morbid obesity due to excess calories 2. Body mass index of 37.7 to 33.8 3. Gastroesophageal reflux disease 4. Hypothyroidism 5. Pernicious anemia 6. History of uterine cancer 7. Bashir's thyroiditis 8. Hypercholesterolemia 9. Chronic constipation 10. Postoperative nausea vomiting 11. Hypertension 12. Vitamin D deficiency 13. Secondary hyperparathyroidism 14. COVID vaccinated 15. Status post gastric bypass PLAN: 1. She has resolved gastroesophageal reflux disease. Continue with Pepcid. 2. Follow-up 1 month post-op. 3. Recommend using tea prior to eating. 4. She has risk for strictures described due to multiple gastric surgeries. 5. Protein intake 60 to 75 grams advised. Objective - Vital Signs Vital signs: Vital Signs Temp 98.4 F 12/09/20 13:44 Pulse 87 12/09/20 13:44 Resp 16 12/09/20 13:44 BP 118/79 12/09/20 13:44 Pulse Ox Intake & Output 12/08/20 12/09/20 12/09/20 18:59 06:59 18:59 Weight 92.079 kg
--- NOTE | 2020-12-09 14:09 | P.PN ---
Progress Note - Text Progress Note Date: 12/09/20 To whom it may concern: Tran Rivero is under my surgical care. She may return to work December 21, 2020 without restrictions. Regards, Elzbieta Conte MD, FACS
== END ==
LOC: BARWHC3 13:17
PROVIDERS: ATTEND Surgery Plastic and Reconstructive Surgery
DX: E66.01 Morbid (severe) obesity due to excess calories (principal); D51.0 Vitamin B12 deficiency anemia due to intrinsic factor deficiency; E06.3 Autoimmune thyroiditis; E55.9 Vitamin D deficiency, unspecified; E78.00 Pure hypercholesterolemia, unspecified; I10 Essential (primary) hypertension; K21.9 Gastro-esophageal reflux disease without esophagitis; N25.81 Secondary hyperparathyroidism of renal origin; K59.09 Other constipation; Z85.42 Personal history of malignant neoplasm of other parts of uterus; Z98.84 Bariatric surgery status; Z68.33 Body mass index [BMI] 33.0-33.9, adult; Z88.0 Allergy status to penicillin; Z88.1 Allergy status to other antibiotic agents; Z88.8 Allergy status to other drugs, medicaments and biological substances; Z87.891 Personal history of nicotine dependence
CPT/HCPCS: 99211

== ENCOUNTER → 2020-12-23 | Outpatient (CLI) | payer OTHER ==
[2020-12-23 14:23] VITALS: BP 133/82; PULSE 92; RESP 18; TEMP 98.1; BMI 31.8
--- NOTE | 2020-12-23 14:27 | P.PN ---
Subjective Progress Note Date: 12/23/20 DATE OF SERVICE: 12/23/2020 CHIEF COMPLAINT: Status post gastric bypass HISTORY OF PRESENT ILLNESS: Tran Rivero is a 59-year-old female status post gastric bypass, 11/23/2020. She is 1 month out. She comes in with new diarrhea for 3 days. She had yellow diarrhea. She comes in under 200 pounds. She had severe dehydration. She is now urinating. She is back to work. She denies abdominal pain. She was eating apple sauce causing dumping syndrome. Her taste has changed. She had nausea from dehydration. She reports no further reflux. At height of 5 feet 5 inches, her ideal body weight is 149 pounds. Her highest weight is 226 pounds, BMI 37.7. She comes in 191 pounds from 203 pounds, 2 weeks ago. She has lost 12 pounds in 2 weeks. Her body mass index is 31.8. Lifetime total weight loss of 35 pounds. Her lifetime percent excess weight loss is 46%. She is 42 pounds overweight. PHYSICAL EXAM: VITAL SIGNS: Height 5 foot 5 inches, weight 191 pounds. BMI 31.8 Vital Signs Temp 98.1 F 12/23/20 14:13 Pulse 92 12/23/20 14:13 Resp 18 12/23/20 14:13 BP 133/82 12/23/20 14:13 Pulse Ox GENERAL: Well-developed in no acute distress. HEENT: No scleral icterus. Extraocular movements grossly intact. Hears conversational speech. No nasal drainage. NECK: Supple without lymphadenopathy. CHEST: Nonlabored respirations with equal bilateral excursions. CARDIOVASCULAR: Regular rate and rhythm. Distal 2+ pulses. ABDOMEN: Nontender. Nondistended. MUSCULOSKELETAL: No clubbing, cyanosis. NEURO: No focal or lateralizing signs. Cranial nerves 2 through 12 grossly within normal limits. PSYCH: Appropriate affect. Alert and oriented to person, place and time. SKIN: Good skin turgor. Well perfused. ASSESSMENT: 1. Morbid obesity due to excess calories 2. Body mass index of 37.7 to 31.8 3. Gastroesophageal reflux disease 4. Hypothyroidism 5. Pernicious anemia 6. History of uterine cancer 7. Bashir's thyroiditis 8. Hypercholesterolemia 9. Chronic constipation 10. Postoperative nausea vomiting 11. Hypertension 12. Vitamin D deficiency 13. Secondary hyperparathyroidism 14. COVID vaccinated 15. Status post gastric bypass 16. Diarrhea 17. Dehydration. 18. Dumping syndrome. PLAN: 1. Recommend dry hummus as alternative for snacking. 2. Increase fluid intake for dehydration. 3. Recommend protein intake over 60 grams daily. Objective - Vital Signs Vital signs: Vital Signs Temp 98.1 F 12/23/20 14:13 Pulse 92 12/23/20 14:13 Resp 18 12/23/20 14:13 BP 133/82 12/23/20 14:13 Pulse Ox Intake & Output 12/22/20 12/23/20 12/23/20 18:59 06:59 18:59 Weight 86.636 kg - Labs CBC & Chem 7: 12/23/20 15:02 12/23/20 15:02
[2020-12-23 15:42] LABS: HCT 42.2 % (34.0-46.0); MCH 28.3 pg (25.0-35.0); MCHC 33.8 g/dL (31.0-37.0); MCV 83.7 fL (80.0-100.0); Mean Platelet Volume 8.7; Platelet Count 186 k/uL (150-450); RBC 5.04 m/uL (3.80-5.40); WBC 6.7 k/uL (3.8-10.6)
[2020-12-23 15:45] LABS: HGB 14.2 gm/dL (11.4-16.0)
[2020-12-23 16:07] LABS: Partial Thromboplastin Time 22.6 sec (22.0-30.0); Prothrombin Time 11.1 sec (9.0-12.0)
[2020-12-24 04:41] LABS: Hemoglobin A1C 5.2 % (4.0-6.0)
[2020-12-24 12:31] LABS: Zinc, Serum 104 ug/dL (60-130)
[2020-12-24 13:29] LABS: % Iron Saturation 8.76 (12.00-45.00); African American GFR (CKD) 93.5 (60.0-200.0); Albumin 4.4 g/dL (3.80-4.90); Albumin/Globulin Ratio 1.83 (1.60-3.17); Anion Gap 16.4 mmol/L (4.00-12.00); BUN/Creat Ratio 21.25 Ratio (12.00-20.00); Calcium 9.6 mg/dL (8.7-10.3); Carbon Dioxide 19.6 mmol/L (21.6-31.8); Chol/HDL Ratio 3.56; Globulin 2.4 g/dL (1.6-3.3); LDL Cholesterol,Calculated 67.2 mg/dL (0.0-131.0); Magnesium 1.6 mg/dL (1.5-2.4); Non-African American GFR(CKD) 80.7 (60.0-200.0); Phosphorus 3.2 mg/dL (2.4-5.1); Total Bilirubin 0.5 mg/dL (0.3-1.2); Total Protein 6.8 g/dL (6.2-8.2); VLDL Calculation 19.8 mg/dL (5.00-40.00)
[2020-12-24 14:46] LABS: Folate, Serum 13.9 ng/mL
[2020-12-25 06:09] LABS: Vit B1(Thiamine) 34 ug/L (38-122)
[2020-12-25 06:18] LABS: Vitamin A 31 ug/dL (38-106)
[2020-12-31 02:33] LABS: Selenium 107 mcg/L (63-160)
== END ==
LOC: BARWHC3 13:57
PROVIDERS: ATTEND Surgery Plastic and Reconstructive Surgery
DX: E66.01 Morbid (severe) obesity due to excess calories (principal); D51.0 Vitamin B12 deficiency anemia due to intrinsic factor deficiency; E06.3 Autoimmune thyroiditis; E55.9 Vitamin D deficiency, unspecified; E78.00 Pure hypercholesterolemia, unspecified; E86.0 Dehydration; I10 Essential (primary) hypertension; K21.9 Gastro-esophageal reflux disease without esophagitis; K59.09 Other constipation; N25.81 Secondary hyperparathyroidism of renal origin; Z98.84 Bariatric surgery status; Z68.31 Body mass index [BMI] 31.0-31.9, adult; Z85.42 Personal history of malignant neoplasm of other parts of uterus; R19.7 Diarrhea, unspecified; K91.1 Postgastric surgery syndromes; Z88.1 Allergy status to other antibiotic agents; Z88.0 Allergy status to penicillin; Z88.8 Allergy status to other drugs, medicaments and biological substances; Z87.891 Personal history of nicotine dependence
CPT/HCPCS: 80053; 80061; 82306; 82525; 82607; 82728; 82746; 83036; 83540; 83550; 83735; 83970; 84100; 84134; 84255; 84425; 84443; 84590; 84630; 85027; 85610; 85730; 97803; 99211

== ENCOUNTER → 2021-05-13 | Outpatient (CLI) | payer OTHER ==
[2021-05-13 12:25] LABS: Partial Thromboplastin Time 24.9 sec (22.0-30.0); Prothrombin Time 10.7 sec (9.0-12.0)
[2021-05-13 19:41] LABS: HCT 42.5 % (37.2-46.3); HGB 13.7 g/dL (12.0-15.0); MCH 28.2 pg (27.0-32.0); MCHC 32.2 g/dL (32.0-37.0); MCV 87.6 fL (80.0-97.0); Mean Platelet Volume 11.6 fL (9.5-12.2); Platelet Count 312 X 10*3/uL (140-440); RBC 4.85 X 10*6/uL (4.10-5.20); RDW 14.1 % (11.5-14.5); WBC 6.39 X 10*3/uL (4.50-10.00)
[2021-05-13 21:51] LABS: % Iron Saturation 26.41 (12.00-45.00); ALT 44 U/L (8-44); AST 32 U/L (13-35); African American GFR (CKD) 87.5 (60.0-200.0); Albumin 4.2 g/dL (3.8-4.9); Albumin/Globulin Ratio 1.74 (1.60-3.17); Alkaline Phosphatase 166 U/L (41-126); BUN/Creat Ratio 14.91 Ratio (12.00-20.00); Blood Urea Nitrogen 12.6 mg/dL (9.0-27.0); Calcium 9.9 mg/dL (8.7-10.3); Chloride 105 mmol/L (96-109); Chol/HDL Ratio 3.52 Ratio; Globulin 2.4 g/dL (1.6-3.3); Glucose 96 mg/dL (70-110); Iron 99 ug/dL (50-170); LDL Cholesterol,Calculated 97.3 mg/dL (0.0-131.0); Magnesium 2.1 mg/dL (1.5-2.4); Non-African American GFR(CKD) 75.5 (60.0-200.0); Phosphorus 4.3 mg/dL (2.4-5.1); Potassium 4.2 mmol/L (3.5-5.5); Prealbumin 14.6 mg/dL (18.0-42.0); Sodium 141 mmol/L (135-145); Total Iron Binding Capacity 375 ug/dL (228-460); Total Protein 6.6 g/dL (6.2-8.2)
[2021-05-14 13:08] LABS: Zinc, Serum 77 ug/dL (60-130)
== END | disposition home or self-care (01) ==
LOC: LABWHC1 10:37
PROVIDERS: ATTEND Internal Medicine Endocrinology, Diabetes & Metabolism
DX: E03.8 Other specified hypothyroidism (principal); E66.1 Drug-induced obesity; E89.1 Postprocedural hypoinsulinemia; E44.0 Moderate protein-calorie malnutrition; E55.9 Vitamin D deficiency, unspecified; D50.8 Other iron deficiency anemias; K74.1 Hepatic sclerosis; N19 Unspecified kidney failure; K50.90 Crohn's disease, unspecified, without complications
CPT/HCPCS: 36415; 80053; 80061; 82306; 82525; 82607; 82728; 82746; 83036; 83540; 83550; 83735; 83970; 84100; 84134; 84255; 84425; 84443; 84590; 84630; 85027; 85610; 85730

== ENCOUNTER → 2021-08-11 | Outpatient (CLI) | payer BC ==
[2021-08-11 16:04] VITALS: BP 137/92; PULSE 90; RESP 16; TEMP 97.7; BMI 25.9
--- NOTE | 2021-08-11 16:21 | P.BASOAP ---
Subjective Progress Note Date: 08/11/21 DATE OF SERVICE: 08/11/2021 CHIEF COMPLAINT: Status post gastric bypass HISTORY OF PRESENT ILLNESS: Tran Rivero is a 60-year-old female status post gastric bypass, 11/23/2020. She is 9 months out. She is tolerating textured foods. She denies any new issues. No abdominal pain. No heartburn. Her blood sugar glucose is normal. She has good blood pressure. She takes a multivitamin. She is monitoring her TSH level. Her initial synthroid dose was over 200 mcg now down to 137 mcg. At height of 5 feet 5 inches, her ideal body weight is 149 pounds. Her highest weight is 226 pounds, BMI 37.7. She comes in 156 pounds from 168 pounds, 4 months ago. She has lost 12 pounds in 4 months. Her body mass index is 26.0. Lifetime total weight loss of 70 pounds. Her lifetime percent excess weight loss is 91 %. She is 7 pounds overweight. PHYSICAL EXAM: VITAL SIGNS: Height 5 foot 5 inches, weight 156 pounds. BMI 26.0 Vital Signs Temp 97.7 F 08/11/21 16:03 Pulse 90 08/11/21 16:03 Resp 16 08/11/21 16:03 BP 137/92 08/11/21 16:03 Pulse Ox GENERAL: Well-developed in no acute distress. HEENT: No scleral icterus. Extraocular movements grossly intact. Hears conversational speech. No nasal drainage. NECK: Supple without lymphadenopathy. CHEST: Nonlabored respirations with equal bilateral excursions. CARDIOVASCULAR: Regular rate and rhythm. Distal 2+ pulses. ABDOMEN: Nontender. Nondistended. Mild panniculitis. Grade 2+ pannus MUSCULOSKELETAL: No clubbing, cyanosis. NEURO: No focal or lateralizing signs. Cranial nerves 2 through 12 grossly within normal limits. PSYCH: Appropriate affect. Alert and oriented to person, place and time. SKIN: Good skin turgor. Well perfused. LABS: Reviewed. Vitamin A low. TSH low. ASSESSMENT: 1. Morbid obesity due to excess calories 2. Body mass index of 37.7 to 26.0 3. Gastroesophageal reflux disease 4. Hypothyroidism 5. Pernicious anemia 6. History of uterine cancer 7. Bashir's thyroiditis 8. Hypercholesterolemia 9. Chronic constipation 10. Postoperative nausea vomiting 11. Hypertension 12. Vitamin D deficiency 13. Secondary hyperparathyroidism 14. COVID vaccinated 15. Status post gastric bypass 16. Panniculitis 17. Iron deficiency anemia 18. Elevated liver enzymes 19. Vitamin A deficiency 20. Vitamin B1 deficiency PLAN: 1. Recommend re-check of bariatric labs with adjustment of her synthroid. 2. Increase Vitamin A supplement 10,000 daily Objective - Vital Signs Vital signs: Vital Signs Temp 97.7 F 08/11/21 16:03 Pulse 90 08/11/21 16:03 Resp 16 08/11/21 16:03 BP 137/92 08/11/21 16:03 Pulse Ox Intake & Output 08/10/21 08/11/21 08/11/21 18:59 06:59 18:59 Weight 70.76 kg Assessment/Plan Plan: Date: 08/11/21 Initial Weight: 101.605 kg Initial BMI: 37.3 Current Weight: 70.76 kg Current BMI: 25.9 Type of Surgery: Total Volume in Band: Previous Volume: Volume Removed: Volume Added: Band Size:
== END ==
LOC: BARWHC3 15:52
PROVIDERS: ATTEND Surgery Plastic and Reconstructive Surgery
DX: E66.01 Morbid (severe) obesity due to excess calories (principal); K21.9 Gastro-esophageal reflux disease without esophagitis; E03.9 Hypothyroidism, unspecified; D51.0 Vitamin B12 deficiency anemia due to intrinsic factor deficiency; E06.3 Autoimmune thyroiditis; E78.00 Pure hypercholesterolemia, unspecified; K59.09 Other constipation; K95.09 Other complications of gastric band procedure; I10 Essential (primary) hypertension; E55.9 Vitamin D deficiency, unspecified; N25.81 Secondary hyperparathyroidism of renal origin; M79.3 Panniculitis, unspecified; D50.9 Iron deficiency anemia, unspecified; R74.01 Elevation of levels of liver transaminase levels; E50.9 Vitamin A deficiency, unspecified; E51.9 Thiamine deficiency, unspecified; Z68.26 Body mass index [BMI] 26.0-26.9, adult; Z98.84 Bariatric surgery status; Z85.42 Personal history of malignant neoplasm of other parts of uterus; Z79.890 Hormone replacement therapy; Z87.891 Personal history of nicotine dependence; Z88.1 Allergy status to other antibiotic agents; Z88.0 Allergy status to penicillin; Z88.8 Allergy status to other drugs, medicaments and biological substances
CPT/HCPCS: 99211

== ENCOUNTER → 2021-09-23 | Outpatient (CLI) | payer BC ==
[2021-09-23 14:13] LABS: Partial Thromboplastin Time 26.4 sec (22.0-30.0); Prothrombin Time 10.7 sec (9.0-12.0)
[2021-09-23 17:38] LABS: HCT 43.1 % (37.2-46.3); HGB 13.4 g/dL (12.0-15.0); MCH 27.6 pg (27.0-32.0); MCHC 31.1 g/dL (32.0-37.0); MCV 88.9 fL (80.0-97.0); NRBC Per 100 WBC 0 /100 WBCS (0.0-0.0); Platelet Count 284 X 10*3/uL (140-440); RBC 4.85 X 10*6/uL (4.10-5.20); RDW 13.5 % (11.5-14.5); WBC 6.66 X 10*3/uL (4.50-10.00)
[2021-09-23 18:19] LABS: ALT 29 U/L (8-44); AST 24 U/L (13-35); African American GFR (CKD) 81.1 (60.0-200.0); Albumin 4.3 g/dL (3.8-4.9); Albumin/Globulin Ratio 1.87 (1.60-3.17); Alkaline Phosphatase 174 U/L (41-126); BUN/Creat Ratio 17.33 Ratio (12.00-20.00); Blood Urea Nitrogen 15.6 mg/dL (9.0-27.0); Calcium 9.2 mg/dL (8.7-10.3); Carbon Dioxide 27.7 mmol/L (20.0-27.5); Chloride 103 mmol/L (96-109); Ferritin 51.3 ng/mL (10.0-291.0); Globulin 2.3 g/dL (1.6-3.3); Glucose 89 mg/dL (70-110); Iron 75 ug/dL (50-170); Magnesium 2.3 mg/dL (1.5-2.4); Phosphorus 4.6 mg/dL (2.4-5.1); Potassium 4.6 mmol/L (3.5-5.5); Sodium 141 mmol/L (135-145); Total Iron Binding Capacity 399 ug/dL (228-460); Total Protein 6.6 g/dL (6.2-8.2)
[2021-09-23 18:39] LABS: LDL Cholesterol,Calculated 119.8 mg/dL (0.0-131.0); Prealbumin 17.8 mg/dL (18.0-42.0)
[2021-09-24 12:42] LABS: Zinc, Serum 66 ug/dL (60-130)
== END | disposition home or self-care (01) ==
LOC: LABPAT 12:59
PROVIDERS: ATTEND Surgery Plastic and Reconstructive Surgery
DX: E89.1 Postprocedural hypoinsulinemia (principal); E55.9 Vitamin D deficiency, unspecified; E03.8 Other specified hypothyroidism; E45 Retarded development following protein-calorie malnutrition; E44.0 Moderate protein-calorie malnutrition; E66.01 Morbid (severe) obesity due to excess calories; D50.8 Other iron deficiency anemias; K91.2 Postsurgical malabsorption, not elsewhere classified; K74.1 Hepatic sclerosis; N19 Unspecified kidney failure; T56.894A Toxic effect of other metals, undetermined, initial encounter; K50.90 Crohn's disease, unspecified, without complications
CPT/HCPCS: 80053; 80061; 82306; 82525; 82607; 82728; 82746; 83036; 83540; 83550; 83735; 83970; 84100; 84134; 84255; 84425; 84443; 84590; 84630; 85027; 85610; 85730

== ENCOUNTER → 2021-12-16 | Outpatient (CLI) | payer BC ==
[2021-12-16 11:31] LABS: Partial Thromboplastin Time 25.8 sec (22.0-30.0); Prothrombin Time 10.6 sec (9.0-12.0)
[2021-12-16 16:18] LABS: HCT 43.8 % (37.2-46.3); HGB 13.6 g/dL (12.0-15.0); MCH 28.1 pg (27.0-32.0); MCHC 31.1 g/dL (32.0-37.0); MCV 90.5 fL (80.0-97.0); Mean Platelet Volume 11.6 fL (9.5-12.2); NRBC Per 100 WBC 0 /100 WBCS (0.0-0.0); Platelet Count 301 X 10*3/uL (140-440); RBC 4.84 X 10*6/uL (4.10-5.20); RDW 13.2 % (11.5-14.5); WBC 6.24 X 10*3/uL (4.50-10.00)
[2021-12-16 18:19] LABS: Chol/HDL Ratio 3.66 Ratio; LDL Cholesterol,Calculated 129.5 mg/dL (0.0-131.0); Prealbumin 18.9 mg/dL (18.0-42.0)
[2021-12-16 18:23] LABS: % Iron Saturation 25.24 (12.00-45.00); ALT 24 U/L (8-44); AST 23 U/L (13-35); African American GFR (CKD) 80.3 (60.0-200.0); Albumin 4.5 g/dL (3.8-4.9); Albumin/Globulin Ratio 1.89 (1.60-3.17); Alkaline Phosphatase 170 U/L (41-126); BUN/Creat Ratio 16.85 Ratio (12.00-20.00); Blood Urea Nitrogen 15.2 mg/dL (9.0-27.0); Calcium 9.4 mg/dL (8.7-10.3); Carbon Dioxide 24.3 mmol/L (20.0-27.5); Chloride 104 mmol/L (96-109); Ferritin 40.9 ng/mL (10.0-291.0); Globulin 2.4 g/dL (1.6-3.3); Glucose 92 mg/dL (70-110); Iron 106 ug/dL (50-170); Magnesium 2.2 mg/dL (1.5-2.4); Non-African American GFR(CKD) 69.3 (60.0-200.0); Phosphorus 3.7 mg/dL (2.4-5.1); Potassium 4.4 mmol/L (3.5-5.5); Sodium 141 mmol/L (135-145); Total Iron Binding Capacity 420 ug/dL (228-460); Total Protein 6.8 g/dL (6.2-8.2)
[2021-12-17 13:50] LABS: Zinc, Serum 63 ug/dL (60-130)
== END | disposition home or self-care (01) ==
LOC: LABWHC1 10:17
PROVIDERS: ATTEND Surgery Plastic and Reconstructive Surgery
DX: E66.01 Morbid (severe) obesity due to excess calories (principal); E89.1 Postprocedural hypoinsulinemia; D50.8 Other iron deficiency anemias; K90.89 Other intestinal malabsorption; K90.9 Intestinal malabsorption, unspecified; E55.9 Vitamin D deficiency, unspecified; K74.1 Hepatic sclerosis; N19 Unspecified kidney failure; T56.894A Toxic effect of other metals, undetermined, initial encounter; K50.90 Crohn's disease, unspecified, without complications
CPT/HCPCS: 36415; 80053; 80061; 82306; 82525; 82607; 82728; 82746; 83036; 83540; 83550; 83735; 83970; 84100; 84134; 84255; 84425; 84443; 84590; 84630; 85027; 85610; 85730

== ENCOUNTER → 2023-08-11 | Outpatient (CLI) | payer BC ==
[2023-08-11 14:10] LABS: INR 0.9 (<1.2); Partial Thromboplastin Time 25.6 sec (22.0-30.0); Prothrombin Time 10.3 sec (10.0-12.5)
[2023-08-11 15:54] LABS: HCT 42.2 % (37.2-46.3); HGB 13.5 g/dL (12.0-15.0); MCH 27.3 pg (27.0-32.0); MCV 85.3 FL (80.0-97.0); Mean Platelet Volume 10.8 FL (9.5-12.2); NRBC Per 100 WBC 0 X 10*3/uL (0.00-0.01); Platelet Count 332 X 10*3/uL (140-440); RBC 4.95 X 10*6/uL (4.10-5.20); RDW 13.1 % (11.5-14.5); WBC 7.76 X 10*3/uL (4.50-10.00)
[2023-08-11 18:31] LABS: Prealbumin 17.1 mg/dL (18.0-42.0)
[2023-08-11 18:50] LABS: % Iron Saturation 17.48 (12.00-45.00); Chol/HDL Ratio 3.09 Ratio; Ferritin 31.8 ng/mL (10.0-291.0); Iron 72 UG/DL (50-170); LDL Cholesterol,Calculated 95.2 mg/dL (0.0-131.0); Magnesium 2.1 mg/dL (1.5-2.4); Phosphorus 3.7 mg/dL (2.4-5.1); Total Iron Binding Capacity 412 UG/DL (228-460)
[2023-08-11 19:37] LABS: Vitamin B12 >3600.0 pg/mL (200.0-944.0)
[2023-08-11 20:04] LABS: ALT 20 U/L (8-44); AST 24 U/L (13-35); Albumin 4.3 g/dL (3.8-4.9); Albumin/Globulin Ratio 1.65 Ratio (1.60-3.17); Alkaline Phosphatase 158 U/L (41-126); BUN/Creat Ratio 12.75 Ratio (12.00-20.00); Blood Urea Nitrogen 10.2 mg/dL (9.0-27.0); Calcium 9.8 mg/dL (8.7-10.3); Carbon Dioxide 25.5 mmol/L (21.6-31.8); Chloride 106 mmol/L (96-109); Globulin 2.6 g/dL (1.6-3.3); Glucose 85 mg/dL (70-110); Potassium 4.5 mmol/L (3.5-5.5); Sodium 142 mmol/L (135-145); Total Bilirubin <0.2 mg/dL (0.3-1.2); Total Protein 6.9 g/dL (6.2-8.2)
== END | disposition home or self-care (01) ==
LOC: LABWHC1 12:29
PROVIDERS: ATTEND Surgery Plastic and Reconstructive Surgery
DX: E66.01 Morbid (severe) obesity due to excess calories (principal); D50.8 Other iron deficiency anemias; K91.2 Postsurgical malabsorption, not elsewhere classified; E44.0 Moderate protein-calorie malnutrition; E44.1 Mild protein-calorie malnutrition; E45 Retarded development following protein-calorie malnutrition; E55.9 Vitamin D deficiency, unspecified; K74.1 Hepatic sclerosis; N19 Unspecified kidney failure; T56.894A Toxic effect of other metals, undetermined, initial encounter; K50.90 Crohn's disease, unspecified, without complications
CPT/HCPCS: 36415; 80053; 80061; 82306; 82525; 82607; 82728; 82746; 83036; 83540; 83550; 83735; 83970; 84100; 84134; 84255; 84425; 84443; 84590; 84630; 85027; 85610; 85730

== ENCOUNTER 2023-08-24 07:02 | Day surgery (SDC) | payer BC ==
[2023-08-24] MEDS ORDERED: LACTATED RINGERS 1,000 ML IV SCH (07:15)
[2023-08-24] MEDS ORDERED: LIDOCAINE 1% (10MG/ML) FOR IV START INTRADERMA PRN (07:15)
--- NOTE | 2023-08-24 07:29 | P.GSHP ---
History of Present Illness H&P Date: 08/24/23 CHIEF COMPLAINT: GERD and colon screen HISTORY OF PRESENT ILLNESS: The patient is a 62-year-old female who presents with gastroesophageal reflux disease and need for colon screen. Upper and lower endoscopy were offered for further evaluation and management. PAST MEDICAL HISTORY: Please see list. PAST SURGICAL HISTORY: Please see list. MEDICATIONS: Please see list. ALLERGIES: Please see list. SOCIAL HISTORY: No illicit drug use FAMILY HISTORY: No reports of Crohn disease or ulcerative colitis. REVIEW OF ORGAN SYSTEMS: CONSTITUTIONAL: No reports of fevers or chills. GI: Denies any blood in stools or constipation. PHYSICAL EXAM: VITAL SIGNS: Stable GENERAL: Well-developed pleasant in no acute distress. HEENT: No scleral icterus. Extraocular movements grossly intact. Moist buccal mucosa. NECK: Supple without lymphadenopathy. CHEST: Unlabored respirations. Equal bilateral excursions. CARDIOVASCULAR: Regular rate and rhythm. Distal 2+ pulses. ABDOMEN: Soft, nondistended. MUSCULOSKELETAL: No clubbing, cyanosis, or edema. ASSESSMENT: 1. Gastroesophageal reflux disease 2. Colon screen. PLAN: 1. Recommend proceeding with an upper and lower endoscopy Past Medical History Past Medical History: Blood Disorder, Cancer, GERD/Reflux, Osteoarthritis (OA), Thyroid Disorder Additional Past Medical History / Comment(s): PERNICIOUS ANEMIA, UTERINE CA 2011, chronic constipation. Hx Bashir's with thyroid nodules and eventual total thyroidectomy. Borderline high cholestrol. was pre diabetic prior to wt loss surgery History of Any Multi-Drug Resistant Organisms: None Reported Past Surgical History: Bariatric Surgery, Cholecystectomy, Hernia Repair, Hysterectomy, Tubal Ligation Additional Past Surgical History / Comment(s): BONE MARROW BX, thyroidectomy.gastric bypass 11-23-20,hiatal hernia repair Past Anesthesia/Blood Transfusion Reactions: Family History of Problems w/ Anesthesia, Motion Sickness, Postoperative Nausea & Vomiting (PONV) Additional Past Anesthesia/Blood Transfusion Reaction / Comment(s): STATES HAS "A LOT OF TROUBLE COMING OUT OF ANESTHESIA" POST OP HAD NURSE SIT NEXT TO HER FOR 5 HOURS, STATED WAS APNEIC. Sisters X2 and Mom had same problems. Smoking Status: Former smoker - Past Family History Mother Family Medical History: Cancer Additional Family Medical History / Comment(s): colon Father Family Medical History: Blood Disorder, Cancer Additional Family Medical History / Comment(s): hemophelia Medications and Allergies Home Medications Medication Instructions Recorded Confirmed Type Levothyroxine Sodium [Tirosint-Steffi] 112 mcg PO QAM 11/18/20 08/24/23 History Vitamin B 12 Injections 1 applicate IJ Q30D 11/18/20 08/24/23 History Zyrtec(Dose Unknown) 1 tab PO HS PRN 11/18/20 08/24/23 History Calcium Citrate 250 mg PO DAILY 11/24/21 08/24/23 History Cholecalciferol (Vitamin D3) 125 mcg PO DAILY 11/24/21 08/24/23 History [Vitamin D3 (125 MCG = 5,000 IU)] Nystatin 100,000 Unit/gm Powd 1 applic TOPICAL BID PRN 11/24/21 08/24/23 History [Mycostatin Powder] Cyclobenzaprine [Flexeril] 10 mg PO HS PRN 08/02/23 08/24/23 History Meloxicam [Mobic] 25 mg PO HS PRN 08/02/23 08/24/23 History Pedi Multivit No.25/Folic Acid 1 tab PO DAILY 08/02/23 08/24/23 History [Flintstones Multivit Chew Tab] Allergies Allergy/AdvReac Type Severity Reaction Status Date / Time cephalexin [From Keflex] Allergy Anaphylaxis Verified 08/22/23 09:51 Penicillins Allergy Anaphylaxis Verified 08/22/23 09:51 omeprazole AdvReac Chest Pain Verified 08/22/23 09:51 Surgical - Exam Vital Signs Temp Pulse Resp BP Pulse Ox 97 F L 90 18 152/82 99 08/24/23 07:18 08/24/23 07:18 08/24/23 07:18 08/24/23 07:18 08/24/23 07:18
[2023-08-24] MEDS ORDERED: PROPOFOL 10 MG/ML 20 ML VIAL IV ONE (07:31)
[2023-08-24] MEDS ORDERED: LIDOCAINE 2% (PF) 20 MG/ML 5 ML VIAL ONE (07:31)
[2023-08-24] MEDS: LACTATED RINGERS 1,000 ML IV ONE (07:37)
[2023-08-24 07:40] VITALS: TEMP 97
--- NOTE | 2023-08-24 07:45 | P.PCN ---
Date of Procedure: 08/24/23 Description of Procedure: PREOPERATIVE DIAGNOSIS: Gastroesophageal reflux disease. Fortune's esophagus POSTOPERATIVE DIAGNOSIS: Gastroesophageal reflux disease. History of Fortune's esophagus History of gastric bypass OPERATION: Esophagogastroduodenoscopy with biopsies along esophagus, stomach and jejunum SURGEON: Elzbieta Conte MD ANESTHESIA: MAC. INDICATIONS: The patient is a 62-year-old female who presents with reflux disease and Fortune's esophagus. Benefits and risks of the procedure were described. Informed consent was obtained. DESCRIPTION: The patient was brought into the endoscopy suite and laid in the left lateral decubitus position. An Olympus gastroscope was passed along the posterior oropharynx down to the distal esophagus where the squamocolumnar junction was encountered at 39 cm from the incisors. The gastric pouch was entered and presence of gastric bypass. Additional findings are listed below. Biopsies with cold forceps were obtained of the gastric pouch and jejunum. The squamocolumnar junction demonstrated LA grade A erosive esophagitis without residual Fortune's esophagus, biopsies were obtained however. The stomach was desufflated. The patient tolerated the procedure well. FINDINGS: Squamocolumnar junction 39 cm from the incisors. Diaphragmatic hiatus at 39 cm. Resolved Fortune's esophagus with multiple biopsies obtained of esophagus LA grade A erosive esophagitis. Biopsies obtained of the jejunum Chronic gastritis with biopsies obtained of gastric pouch. RECOMMENDATIONS: Repeat upper endoscopy 3 years, 2026
--- NOTE | 2023-08-24 08:07 | P.PCN ---
Date of Procedure: 08/24/23 Description of Procedure: PREOPERATIVE DIAGNOSIS: Family history of gastrointestinal cancer Colonoscopy screening. POSTOPERATIVE DIAGNOSIS: Colonoscopy screening. Diverticulosis, scattered. Internal and external hemorrhoids, grade 3 OPERATION: Colonoscopy to the cecum, ileocecal valve and appendiceal orifice. SURGEON: Elzbieta Conte MD. ANESTHESIA: MAC. INDICATIONS: The patient is a 62-year-old female who presents for colonoscopy screening. Benefits and risks were described and informed consent was obtained. DESCRIPTION OF PROCEDURE: The patient had undergone Sutab prep. The patient had been brought into the operating room and laid in the left lateral decubitus position. After adequate i ntravenous sedation, the rectum was examined with 2% lidocaine jelly. No external hemorrhoids were encountered. The rectal tone was within normal limits. No lesions were palpated in the rectal vault. An Olympus colonoscope was advanced until the cecum, ileocecal valve and appendiceal orifice were clearly viewed. The prep was good. Scattered diverticulosis was encountered. No colonic polyps were found. No evidence of focal colitis was found. Retroflexion of the scope demonstrated grade 3 internal hemorrhoids without active bleeding or inflammation. The colon was desufflated. The patient had tolerated the procedure well. Withdrawal time was over 6 minutes. FINDINGS: Aronchick preparation quality scale 2 (1-5) Internal hemorrhoids, grade 3 External prolapsed hemorrhoids, grade 3 No arteriovenous malformations. No adenomatous polyps. Scattered diverticulosis Melanosis coli No focal colitis. RECOMMENDATIONS: Lower endoscopy in 5 years, 2028 Plan - Discharge Summary Discharge Rx Participant: No New Discharge Prescriptions: Continue Levothyroxine Sodium [Tirosint-Steffi] 112 mcg PO QAM Zyrtec(Dose Unknown) 1 tab PO HS PRN PRN Reason: allergies Vitamin B 12 Injections 1 applicate IJ Q30D Cholecalciferol (Vitamin D3) [Vitamin D3 (125 MCG = 5,000 IU)] 125 mcg PO DAILY Pedi Multivit No.25/Folic Acid [Flintstones Multivit Chew Tab] 1 tab PO DAILY Meloxicam [Mobic] 25 mg PO HS PRN PRN Reason: Pain Cyclobenzaprine [Flexeril] 10 mg PO HS PRN PRN Reason: Pain Calcium Citrate 250 mg PO DAILY Nystatin 100,000 Unit/gm Powd [Mycostatin Powder] 1 applic TOPICAL BID PRN PRN Reason: Rash Discharge Medication List Levothyroxine Sodium [Tirosint-Steffi] 112 mcg PO QAM 11/18/20 [History] Vitamin B 12 Injections 1 applicate IJ Q30D 11/18/20 [History] Zyrtec(Dose Unknown) 1 tab PO HS PRN 11/18/20 [History] Calcium Citrate 250 mg PO DAILY 11/24/21 [History] Cholecalciferol (Vitamin D3) [Vitamin D3 (125 MCG = 5,000 IU)] 125 mcg PO DAILY 11/24/21 [History] Nystatin 100,000 Unit/gm Powd [Mycostatin Powder] 1 applic TOPICAL BID PRN 11/24/21 [History] Cyclobenzaprine [Flexeril] 10 mg PO HS PRN 08/02/23 [History] Meloxicam [Mobic] 25 mg PO HS PRN 08/02/23 [History] Pedi Multivit No.25/Folic Acid [Flintstones Multivit Chew Tab] 1 tab PO DAILY 08/02/23 [History] [facility]ment(s[facility]Ref[place] [facility] [place] [place] - [facility]/13/23 4:00 pm Patient Instructions/Handouts: Diverticulosis Diet (GEN), Diverticulosis (DC) Activity/Diet/Wound Care/Special Instructions: Repeat colonoscopy 5 years, 2028 Discharge Disposition: HOME SELF-CARE
[2023-08-24 09:26] VITALS: BP 110/70; PULSE 80; RESP 20
== END 2023-08-24 08:45 | disposition home or self-care (01) ==
LOC: ORWHC2ENDO 07:02
PROVIDERS: ATTEND Surgery Plastic and Reconstructive Surgery
DX: Z12.11 Encounter for screening for malignant neoplasm of colon (principal); K21.00 Gastro-esophageal reflux disease with esophagitis, without bleeding; D72.820 Lymphocytosis (symptomatic); E06.3 Autoimmune thyroiditis; K29.50 Unspecified chronic gastritis without bleeding; K31.A0 Gastric intestinal metaplasia, unspecified; K64.2 Third degree hemorrhoids; K64.4 Residual hemorrhoidal skin tags; M19.90 Unspecified osteoarthritis, unspecified site; Z79.890 Hormone replacement therapy; Z80.0 Family history of malignant neoplasm of digestive organs; Z87.891 Personal history of nicotine dependence; Z88.0 Allergy status to penicillin; Z88.1 Allergy status to other antibiotic agents; Z90.49 Acquired absence of other specified parts of digestive tract; Z98.84 Bariatric surgery status
CPT/HCPCS: 88305; 45378; 43239; J2704; J2001

== ENCOUNTER → 2023-09-13 | Outpatient (CLI) | payer BC ==
--- NOTE | 2023-09-13 16:45 | P.BASOAP ---
Subjective Progress Note Date: 09/13/23 She is doing well. Barretts is gone. She is not retiring yet. NO issues. On mobic. Told to come off mobic. Labs reviewed. High PTH but rest of normal. Assessment/Plan Plan: Date: Initial Weight: 101.605 kg Initial BMI: Current Weight: Current BMI: Type of Surgery: Total Volume in Band: Previous Volume: Volume Removed: Volume Added: Band Size:
[2023-09-13 18:18] VITALS: BP 110/62; PULSE 96; TEMP 97.6; BMI 27.0
== END ==
LOC: BARWHC3 15:26
PROVIDERS: ATTEND Surgery Plastic and Reconstructive Surgery
DX: E66.01 Morbid (severe) obesity due to excess calories (principal); Z53.9 Procedure and treatment not carried out, unspecified reason
CPT/HCPCS: 99211